=== PATIENT | male | born 1945 | race African-American/Black ===

== ENCOUNTER 2016-12-14 18:19 | Inpatient (IN) | payer OTHER, BC ==
[2016-12-14 18:24] VITALS: BMI 29.9
--- NOTE | 2016-12-14 18:31 | PDOC ---
History of Present Illness - General History Source: Patient, Spouse () Exam Limitations: No Limitations - History of Present Illness Initial Comments: 12/14/16 18:53 The patient is a 71 year old male, accompanied by , with no known significant past medical history who presents to the ED with complaints of progressively worsening generalized weakness and shortness of breath for several weeks. 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 Since retiring, states the patient is not as physically active and has an increase in weight gain. Patient states he has developed an intermittent non productive cough over the last several months. Patient also reports he developed shortness of breath several weeks ago. He states he recently traveled to [facility] 2 weeks ago and came back yesterday. Patient reports falling, while in [facility], 1 week ago on his chest but denies head injury or loss of consciousness. Since the fall, the patient states his shortness of breath is progressively worsening and he also reports generalized weakness. Upon arrival to the ED, patient was noted to have a fever of 103F. Patient is noncompliant with medical care and notes,this is his first visit to a doctor in his entire life. Denies chest pain or palpitations. Denies abdominal pain, nausea, vomiting, or diarrhea. Denies dysuria or changes in urinary output. Denies dizziness or lightheadedness. Denies any other symptoms. <Lidia Milian - Last Filed: 12/14/16 18:53> <Ana Palma - Last Filed: 12/14/16 20:16> - General Chief Complaint: Weakness Stated Complaint: WEAKNESS Time Seen by Provider: 12/14/16 18:31 Past History <Lidia Milian - Last Filed: 12/14/16 18:53> - Past Medical History Other medical history: denies - Psycho/Social/Smoking Cessation Hx Suicidal Ideation: No Smoking History: Never smoked <Ana Palma - Last Filed: 12/14/16 20:16> - Past Medical History Allergies/Adverse Reactions: Allergies Allergy/AdvReac Type Severity Reaction Status Date / Time No Known Allergies Allergy Verified 12/14/16 18:24 Home Medications: Ambulatory Orders NK [No Known Home Medication] 12/14/16 Review of Systems - Review of Systems Able to Perform ROS?: Yes Comments:: 12/14/16 18:54 GENERAL/CONSTITUTIONAL: + fever, generalized weakness. No fever or chills. HEAD, EYES, EARS, NOSE AND THROAT: No change in vision. No ear pain or discharge. No sore throat. CARDIOVASCULAR: No chest pain or shortness of breath. RESPIRATORY:+ cough, SOB. No wheezing, or hemoptysis. GASTROINTESTINAL: No nausea, vomiting, diarrhea or constipation. GENITOURINARY: No dysuria, frequency, or change in urination. MUSCULOSKELETAL: No joint or muscle swelling or pain. No neck or back pain. SKIN: No rash NEUROLOGIC: No headache, vertigo, loss of consciousness, or change in strength/ sensation. ENDOCRINE: No increased thirst. No abnormal weight change. HEMATOLOGIC/LYMPHATIC: No anemia, easy bleeding, or history of blood clots. ALLERGIC/IMMUNOLOGIC: No hives or skin allergy. All Other Systems: Reviewed and Negative <Lidia Milian - Last Filed: 12/14/16 18:53> *Physical Exam - Vital Signs Last Vital Signs Temp Pulse Resp BP Pulse Ox 103 F H 104 H 20 164/85 83 L 12/14/16 18:20 12/14/16 18:20 12/14/16 18:20 12/14/16 18:20 12/14/16 18:20 - Physical Exam Comments: 12/14/16 18:54 GENERAL: + mild distress. Awake, alert, and fully oriented, HEAD: No signs of trauma EYES: PERRLA, EOMI, sclera anicteric, conjunctiva clear ENT: Auricles normal inspection, hearing grossly normal, nares patent, oropharynx clear without exudates. Moist mucosa NECK: Normal ROM, supple, no lymphadenopathy, JVD, or masses LUNGS: + decreased air entry bilaterally, tachypneic, speaking in 2-3 word sentences. No wheezes, and no crackles HEART: Regular rate and rhythm, normal S1 and S2, no murmurs, rubs or gallops ABDOMEN: Soft, nontender, normoactive bowel sounds. No guarding, no rebound. No masses EXTREMITIES: Normal range of motion, no edema. No clubbing or cyanosis. No cords, erythema, or tenderness NEUROLOGICAL: Normal speech SKIN: Warm, Dry, normal turgor, no rashes or lesions noted. <Lidia Milian - Last Filed: 12/14/16 18:53> - Vital Signs Last Vital Signs Temp Pulse Resp BP Pulse Ox 103 F H 104 H 20 164/85 83 L 12/14/16 18:20 12/14/16 18:20 12/14/16 18:20 12/14/16 18:20 12/14/16 18:20 <Ana Palma - Last Filed: 12/14/16 20:16> ED Treatment Course - LABORATORY CBC & Chemistry Diagram: 12/14/16 18:47 12/14/16 18:47 <Lidia Milian - Last Filed: 12/14/16 18:53> - LABORATORY CBC & Chemistry Diagram: 12/14/16 18:47 12/14/16 18:47 <Ana Palma - Last Filed: 12/14/16 20:16> Medical Decision Making - Medical Decision Making 12/14/16 20:08 Pt presents to the ED complaining of shortness of breath. Patient is febrile and hypoxic in the ED, and extremely tachypneic. Concern for PNA, occult rib fx , less likely PE. Given fever and hypoxia, patient treated for PNA with levaquin. Will check CT non contrast to rule out occult rib fx. <Ana Palma - Last Filed: 12/14/16 20:16> *DC/Admit/Observation/Transfer - Attestations Scribe Attestion: 12/14/16 18:54 Documentation prepared by Lidia Milian, acting as medical administrator for Ana Palma MD <Lidia Milian - Last Filed: 12/14/16 18:53> - Discharge Dispostion Admit: Yes <Ana Palma - Last Filed: 12/14/16 20:16> Diagnosis at time of Disposition: Pneumonia Qualifiers: Pneumonia type: due to unspecified organism Laterality: bilateral Lung location : unspecified part of lung Qualified Code(s): J18.9 - Pneumonia, unspecified organism - Discharge Dispostion Condition at time of disposition: Fair
[2016-12-14 18:54] LABS: EOSINOPHIL 0.1 % (0-4.5); MCH 31.4 pg (25.7-33.7); MCHC 34.8 g/dl (32.0-35.9); MEAN CELL VOLUME 90.1 fl (80-96); MEAN PLT VOLUME 10.9 fl (7.5-11.1); NEUTROPHILS 79.3 % (42.8-82.8); PLATELET COUNT 223 K/MM3 (134-434); RDW 13.1 % (11.9-15.9); WHITE BLOOD COUNT 10.8 K/mm3 (4.0-10.0)
[2016-12-14] MEDS ORDERED: ACETAMINOPHEN 500 MG TABLET (FP) PO ONE (18:57)
[2016-12-14] MEDS ORDERED: ACETAMINOPHEN 325 MG TABLET (FP) ONE (18:57)
[2016-12-14 19:22] LABS: ALBUMIN 2.7 g/dl (3.4-5.0); ANION GAP 11 (8-16); BILIRUBIN,TOTAL 1.5 mg/dL (0.2-1.0); CALCIUM 8.4 mg/dL (8.5-10.1); CO2 27 mmol/L (21-32); CREATININE 1.4 mg/dL (0.7-1.3); GLUCOSE,RANDOM 156 mg/dL (74-106); SGPT/ALT 62 U/L (12-78); TOT PROT 6.7 g/dl (6.4-8.2)
[2016-12-14 19:23] LABS: ALK PHOS 71 U/L (45-117)
[2016-12-14 19:26] LABS: SGOT/AST 97 U/L (15-37)
[2016-12-14] MEDS ORDERED: LEVOFLOXACIN 750 MG IVPB 150 ML IVPB ONE ×2 (19:33→19:35)
[2016-12-14 20:47] LABS: URINE APPEARANCE SLCLOUDY; URINE BILIRUBIN NEGATIVE (NEGATIVE); URINE BLOOD 2+ (NEGATIVE); URINE COLOR AMBER; URINE GLUCOSE (UA) NEGATIVE (NEGATIVE); URINE KETONE TRACE (NEGATIVE); URINE LEUK ESTERASE NEGATIVE (NEGATIVE); URINE NITRITE NEGATIVE (NEGATIVE)
[2016-12-14 20:52] LABS: URINE PROTEIN 2+ (NEGATIVE)
[2016-12-14 20:54] LABS: URINE MUCUS RARE; URINE RBC 1 /hpf (0-3); URINE WBC 2 /hpf (3-5)
--- NOTE | 2016-12-14 22:48 | PN ---
Teaching Attending Note Name of Resident: Richard Mack ATTENDING PHYSICIAN STATEMENT I saw and evaluated the patient. Chart, data, and imaging reviewed. I reviewed the resident's note and discussed the case with the resident. I agree with the resident's findings and plan as documented with modifications in the note below. SUBJECTIVE: 71yo male from [facility] with chronic dry cough felt short or breath, weak, and had worsening of cough for the past week. Minimal sputum. Fever up to 103 in ER. Denied any chest pain. Traveled to [facility] about 2 weeks ago. No sick contacts reported. Denied TB contacts. 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 Never had PPD performed. Has not seen doctor in many years. OBJECTIVE: Last Vital Signs Temp Pulse Resp BP Pulse Ox 98.6 F 87 16 134/76 95 12/14/16 22:40 12/14/16 22:40 12/14/16 22:40 12/14/16 22:40 12/14/16 22:46 General- NAD, comfortable HEENT - NC, AT, dry oral mucosa Neck - supple CV -s1+s2+ RRR Lungs - b/l rhonchi appreciated Abdomen- soft, mild distention, nontender, no masses appreciated Ext - 2+ pitting edema b/l , no clubbing or cyanosis appreciated Abnormal Lab Results 12/14/16 12/14/16 12/14/16 18:47 18:47 20:28 WBC 10.8 H Sodium 133 L Chloride 95 L Creatinine 1.4 H Random Glucose 156 H Calcium 8.4 L Total Bilirubin 1.5 H AST 97 H B-Natriuretic Peptide Albumin 2.7 L Urine Protein 2+ H Urine Ketones Trace H Urine Blood 2+ H 12/14/16 20:37 WBC Sodium Chloride Creatinine Random Glucose Calcium Total Bilirubin AST B-Natriuretic Peptide 833.42 H Albumin Urine Protein Urine Ketones Urine Blood EKG -NSR , no ST -T changes CT scan of chest- b/l consolidations and ground glass changes ASSESSMENT AND PLAN: #Sepsis 2/2 to Multilobar community acquired PNA. Meets SIRS criteria. B/l consolidations and ground glass changes found on chest CT. Should r/o legionella , mycoplasma given ground glass changes. S/p levofloxacin stat in ER. Should r/ o TB given history of chronic cough. -troponin -lactate -blood cultures x2 -sputum culture -legionella urine ag -mycoplasma IgM -quantiferon gold -airoborne isolation -3 sputums for AFB culture and smear -ceftriaxone 2g IV q24hrs -azithromycin 500mg PO daily -ID consult for antibiotic approval -HIV serology #TERRY vs CKD - unknown baseline creatinine -urine lytes -urine creatinine -UA -renal sonogram -gentle IVF hydration -avoid nephrotoxic medications -I,Os -daily weights -transthoracic echo -A1c #DVT risk - low -SCDs for dvt ppx #Diet - low sodium diet
[2016-12-14] MEDS ORDERED: SODIUM CHLORIDE 1,000 ML IV SCH (23:00)
--- NOTE | 2016-12-14 23:38 | HP ---
CHIEF COMPLAINT: Generalized weakness, Fever, SOB, Couph PCP: NO PCP he will see his PCP HISTORY OF PRESENT ILLNESS: 71 Year old man from [facility] with history of chronic dry cough who presented to the ED with one week h/o generalized weakness, Fatigue , SOB on exertion,and loss of appetite. symptoms associated with fever, chills, diaphoresis and loss of appetite. he reports that the cough worsen in the last week, and become productive of less than a spoon of white phlegm, and associated with little blood sometimes. He denies any headache, blurry vision, light headedness, facial pain,palpitation,orthopnea , nocturnopnea, he denies abdominal pain, D/C/ N/V. He denies any urinary symptoms.patient mentioned one mechanical fall last week. he has no history of sick contact,but has been recently in [facility]. ER course was notable for: (1)KG -NSR , no ST -T changes (2)CT scan of chest- b/l consolidations and ground glass changes (3) Levofluxacin 750 IVPB once in the ED, Tylenol 1000 PO once. Recent Travel: yes , [facility] PAST MEDICAL HISTORY: None PAST SURGICAL HISTORY:None Social History: Smoking:never Alcohol:never Drugs: never Family History: BP on his mother side Allergies No Known Allergies Allergy (Verified 12/14/16 18:24) HOME MEDICATIONS: Home Medications Medication Instructions Recorded NK [No Known Home Medication] 12/14/16 REVIEW OF SYSTEMS CONSTITUTIONAL: Absent: fever, chills, diaphoresis, generalized weakness, malaise, loss of appetite, gaine weight since care home in March. HEENT: Absent: rhinorrhea, nasal congestion, throat pain, throat swelling, difficulty swallowing, mouth swelling, ear pain, eye pain, visual changes CARDIOVASCULAR: Absent: chest pain, syncope, palpitations, irregular heart rate, lightheadedness , peripheral edema RESPIRATORY: Absent: cough, shortness of breath, dyspnea with exertion, orthopnea, wheezing, stridor, hemoptysis GASTROINTESTINAL: Absent: abdominal pain, abdominal distension, nausea, vomiting, diarrhea, constipation, melena, hematochezia GENITOURINARY: Absent: dysuria, frequency, urgency, hesitancy, hematuria, flank pain, genital pain MUSCULOSKELETAL: Absent: myalgia, arthralgia, joint swelling, back pain, neck pain SKIN: Absent: rash, itching, pallor HEMATOLOGIC/IMMUNOLOGIC: Absent: easy bleeding, easy bruising, lymphadenopathy, frequent infections ENDOCRINE: Absent: unexplained weight gain, unexplained weight loss, heat intolerance, cold intolerance NEUROLOGIC: Absent: headache, focal weakness or paresthesias, dizziness, unsteady gait, seizure, mental status changes, bladder or bowel incontinence PSYCHIATRIC: Absent: anxiety, depression, suicidal or homicidal ideation, hallucinations. PHYSICAL EXAMINATION Vital Signs - 24 hr 12/14/16 12/14/16 12/14/16 20:55 22:40 22:46 Temperature 98.6 F Pulse Rate 87 Pulse Rate [ 91 H Radial] Respiratory 18 16 Rate Blood Pressure 134/76 Blood Pressure 125/70 [Right Arm] O2 Sat by Pulse 100 95 Oximetry (%) GENERAL: Awake, alert, and fully oriented, in no acute distress. HEAD: Normal with no signs of trauma. EYES: Pupils equal, round and reactive to light, extraocular movements intact, sclera anicteric, conjunctiva clear. No lid lag. EARS, NOSE, THROAT: Ears normal, nares patent, oropharynx clear without exudates. Moist mucous membranes. NECK: Normal range of motion, supple without lymphadenopathy, JVD, or masses. LUNGS: Breath sounds equal, diffuse crackles at the lower lung bases . No wheezes. No accessory muscle use. HEART: Regular rate and rhythm, normal S1 and S2 without murmur, rub or gallop. ABDOMEN: Soft, nontender, not distended, normoactive bowel sounds, no guarding, no rebound, no masses. No hepatomegaly or splenomegaly. MUSCULOSKELETAL: Normal range of motion at all joints. No bony deformities or tenderness. No CVA tenderness. UPPER EXTREMITIES: 2+ pulses, warm, well-perfused. No cyanosis. No clubbing. No peripheral edema. LOWER EXTREMITIES: 2+ pulses, warm, well-perfused. No calf tenderness. +2 peripheral edema. NEUROLOGICAL: Normal speech. Normal gait. PSYCHIATRIC: Cooperative. Good eye contact. Appropriate mood and affect. SKIN: Warm, dry, normal turgor, no rashes or lesions noted, normal capillary refill. Laboratory Results - last 24 hr 12/14/16 12/14/16 20:28 20:37 B-Natriuretic Peptide 833.42 H Urine Color Grace Urine Appearance Slcloudy Urine pH 5.0 Ur Specific [place] 1.020 Urine Protein 2+ H Urine Glucose (UA) Negative Urine Ketones Trace H Urine Blood 2+ H Urine Nitrite Negative Urine Bilirubin Negative Urine Urobilinogen 2.0 Ur Leukocyte Esterase Negative Urine RBC 1 Urine WBC 2 Urine Mucus Rare CBC,CMP WBC 10.8 K/mm3 (4.0-10.0) H 12/14/16 18:47 RBC 4.23 M/mm3 (4.00-5.60) 12/14/16 18:47 Hgb 13.3 GM/dL (11.7-16.9) 12/14/16 18:47 Hct 38.1 % (35.4-49) 12/14/16 18:47 MCV 90.1 fl (80-96) 12/14/16 18:47 MCH 31.4 pg (25.7-33.7) 12/14/16 18:47 MCHC 34.8 g/dl (32.0-35.9) 12/14/16 18:47 RDW 13.1 % (11.9-15.9) 12/14/16 18:47 Plt Count 223 K/MM3 (134-434) 12/14/16 18:47 MPV 10.9 fl (7.5-11.1) 12/14/16 18:47 Neutrophils % 79.3 % (42.8-82.8) 12/14/16 18:47 Lymphocytes % 10.5 % (8-40) 12/14/16 18:47 Monocytes % 9.1 % (3.8-10.2) 12/14/16 18:47 Eosinophils % 0.1 % (0-4.5) 12/14/16 18:47 Basophils % 1.0 % (0-2.0) 12/14/16 18:47 Sodium 133 mmol/L (136-145) L 12/14/16 18:47 Potassium 4.2 mmol/L (3.5-5.1) 12/14/16 18:47 Chloride 95 mmol/L (98-107) L 12/14/16 18:47 Carbon Dioxide 27 mmol/L (21-32) 12/14/16 18:47 Anion Gap 11 (8-16) 12/14/16 18:47 BUN 15 mg/dL (7-18) 12/14/16 18:47 Creatinine 1.4 mg/dL (0.7-1.3) H 12/14/16 18:47 Creat Clearance w eGFR 50.10 (>60) 12/14/16 18:47 Random Glucose 156 mg/dL (74-106) H 12/14/16 18:47 Lactic Acid 1.4 mmol/L (0.4-2.0) 12/14/16 18:47 Calcium 8.4 mg/dL (8.5-10.1) L 12/14/16 18:47 Total Bilirubin 1.5 mg/dL (0.2-1.0) H 12/14/16 18:47 AST 97 U/L (15-37) H 12/14/16 18:47 ALT 62 U/L (12-78) 12/14/16 18:47 Alkaline Phosphatase 71 U/L (45-117) 12/14/16 18:47 B-Natriuretic Peptide 833.42 pg/ml (5-125) H 12/14/16 20:37 Total Protein 6.7 g/dl (6.4-8.2) 12/14/16 18:47 Albumin 2.7 g/dl (3.4-5.0) L 12/14/16 18:47 Home Medication List Medication Instructions Recorded Confirmed Type NK [No Known Home Medication] 12/14/16 12/14/16 History Active Medications Generic Name Dose Route Start Last Admin Trade Name Freq PRN Reason Stop Dose Admin Acetaminophen 650 mg 12/15/16 00:46 Tylenol - PO 12/15/16 00:47 ONCE ONE Azithromycin 500 mg 12/15/16 10:00 Zithromax - PO DAILY MAXINE Current Medications Azithromycin (Zithromax -) 500 mg PO DAILY MAXINE Sodium Chloride (Normal Saline -) 250 mls @ 500 mls/hr IV ASDIR STA Stop: 12/15/16 01:18 ASSESSMENT/PLAN: 71 Year old man from [facility] with history of chronic dry cough who presented to the ED with one week h/o generalized weakness, Fatigue , SOB on exertion,and loss of appetite. symptoms associated with fever, chills, diaphoresis and loss of appetite.Patient was admitted to med-surg for treatment of possible pneumonia. # Sepsis likely 2/2 CAP Pneumonia VS TB vs MT * has fever , HR>90 , and suspected sourse of infection (lungs) * Troponin trend * EKG did not show any St, T wave changes * CXR shows left upper lob consolidation, CT scan shows B/L consolidation and ground glass changes * Duneb * 2 L O2 NC * Blood Culture X2 * Sputum culture * Urine Legionella antigen * Echo cardiogram to get his base line * Air born Isolation * 3 sputums for AFB culture and smear * mycoplasma IgM * quantiferon gold * ID consult * Azithromycine 500 mg PO daily ,ceftriaxone 2g IV q24hrs ( needs ID approval ) * LA * # TERRY likely 2/2 Hypovolemia vs dehydration vs hypoperfusion of cardiac origin * BUN/Cr 15/1.4, unknown base line * IV fuids 250 Bolus once * Urine lytes * Urine protein * Urine NA * Urine Cr * Avoid Nephrotoxic agents * Renal US * # Lower extremities Edema, Acute * Likely 2/2 TERRY vs Cardiac reasons * Elevated legs * Consider Diuresis after correct kidney function * I/O calculate , daily weight # Hyponatremia, mild , likely 2/2 Low intake vs TERRY * Na 133 * Repeat BMP * IV fluids * I/O calculate , daily weight # elevated BP * BP today 164/85 * Monitor BP * Low sodium diet * Patient education * # Elevated Blood Glucose * Random Glu 156 * trend Glu * HGA1c * Patient education , diabetic Diet * # FEN * F: 250 NS Bolus * E: Hyponatremia , 133 * N: low sodium diet * # Proph * DVT : low rish , early ambulation * GI: No need * airobic isolation Dispo : * Admit to med-surg * Isolation precautions Case was discussed with medical attending and medical team Richard Mack MD .PGY1 Visit type - Emergency Visit Emergency Visit: Yes ED Registration Date: 12/14/16 Care time: The patient presented to the Emergency Department on the above date and was hospitalized for further evaluation of their emergent condition. - New Patient This patient is new to me today: Yes Date on this admission: 12/18/16 - Critical Care Critical Care patient: No
[2016-12-15] MEDS ORDERED: SODIUM CHLORIDE 1,000 ML IV SCH (00:04)
[2016-12-15] MEDS ORDERED: ACETAMINOPHEN 325 MG TABLET (FP) PO ONE ×2 (00:46→06:30)
[2016-12-15] MEDS ORDERED: SODIUM CHLORIDE 250 ML IV STA (00:49)
[2016-12-15 01:05] LABS: URINE APPEARANCE CLEAR; URINE BILIRUBIN NEGATIVE (NEGATIVE); URINE BLOOD 2+ (NEGATIVE); URINE COLOR YELLOW; URINE GLUCOSE (UA) NEGATIVE (NEGATIVE); URINE KETONE NEGATIVE (NEGATIVE); URINE LEUK ESTERASE NEGATIVE (NEGATIVE); URINE NITRITE NEGATIVE (NEGATIVE); URINE UROBILINOGEN 4.0 E.U/dl mg/dL (0.2-1.0)
[2016-12-15 01:15] LABS: URINE PROTEIN 1+ (NEGATIVE)
[2016-12-15 01:16] LABS: URINE MUCUS RARE; URINE RBC <1 /hpf (0-3); URINE WBC 1 /hpf (3-5)
[2016-12-15] MEDS ORDERED: ACETAMINOPHEN 325 MG TABLET (FP) PO PRN (06:29)
[2016-12-15 08:46] LABS: MCH 30.6 pg (25.7-33.7); MCHC 33.7 g/dl (32.0-35.9); MEAN CELL VOLUME 90.8 fl (80-96); MEAN PLT VOLUME 10.5 fl (7.5-11.1); PLATELET COUNT 211 K/MM3 (134-434); RDW 13.2 % (11.9-15.9); WHITE BLOOD COUNT 8.3 K/mm3 (4.0-10.0)
[2016-12-15 09:07] LABS: ANION GAP 9 (8-16); CALCIUM 8.1 mg/dL (8.5-10.1); CO2 29 mmol/L (21-32); GLUCOSE,RANDOM 126 mg/dL (74-106)
[2016-12-15 09:14] LABS: CREATININE 1.2 mg/dL (0.7-1.3); TROPONIN I 0.02 ng/ml (0.00-0.05)
--- NOTE | 2016-12-15 09:25 | PN ---
Progress Note, Physician Chief Complaint: ID This 71 y/o old [place] gentleman asked to see for PNA. 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 Three weeks ago left for vacation 3 weeks in [facility]. Upon return fever and chill couphing. Says since his jail has experienced exertional dsypnea with productive couph and peripheral edema. Did not seek medical attention. Notes gaining weight though last few day BALJINDER with onset of fever chills and pulmonary infiltrate. HIV status unknown. Empiric Levofloxacin. TB status unknown No pets hobboes exposures to ill persons. - Current Medication List Current Medications: Active Medications Acetaminophen (Tylenol -) 650 mg PO Q6H PRN PRN Reason: FEVER OR PAIN Azithromycin (Zithromax -) 500 mg PO DAILY MAXINE - Objective Vital Signs: Vital Signs Temperature 101.0 F H 12/15/16 06:00 Pulse Rate 96 H 12/15/16 06:00 Respiratory Rate 18 12/15/16 06:00 Blood Pressure 143/74 12/15/16 06:00 O2 Sat by Pulse Oximetry (%) 95 12/14/16 22:46 Constitutional: Yes: Well Nourished, No Distress HENT: No: Thrush Neck: Yes: WNL, Supple Cardiovascular: Yes: Regular Rate and Rhythm, S1, S2 Respiratory: Yes: WNL, Regular, CTA Bilaterally Gastrointestinal: Yes: WNL, Normal Bowel Sounds, Soft, Tenderness, Tenderness, Epigastrium Edema: No Labs: CBC, BMP 12/15/16 07:15 12/15/16 07:15 Assessment/Plan Microbiology Laboratory Tests 12/14/16 12/14/16 12/14/16 18:47 18:47 18:47 WBC 10.8 H Hgb 13.3 Hct 38.1 Plt Count 223 Neutrophils % 79.3 Lymphocytes % 10.5 Monocytes % 9.1 Eosinophils % 0.1 Basophils % 1.0 BUN 15 Creatinine 1.4 H Creat Clearance w eGFR 50.10 Random Glucose 156 H Lactic Acid 1.4 Calcium 8.4 L Total Bilirubin 1.5 H AST 97 H ALT 62 Alkaline Phosphatase 71 Total Protein 6.7 Albumin 2.7 L Urine RBC Urine WBC 12/14/16 20:28 WBC Hgb Hct Plt Count Neutrophils % Lymphocytes % Monocytes % Eosinophils % Basophils % BUN Creatinine Creat Clearance w eGFR Random Glucose Lactic Acid Calcium Total Bilirubin AST ALT Alkaline Phosphatase Total Protein Albumin Urine RBC 1 Urine WBC 2 Assessment Pneumonia LLL with bilateral interstitial changes ? CHF vs infectious etiology Differential diagnosis includes CAP but must consider HIV infection and TB though latter seems less likely. Plan Ceftriaxone and Azithromcyin Avoid quinolones as would partially treat TB Sputum AFB PCR x 2 Isolation fine as precaution LDH CRP ESR Quant gold ECHO May need bronchoscopy if no improvement Thanks Yandel CEE
[2016-12-15] MEDS ORDERED: DEXTROSE 5%-WATER 100 ML IVPB ONE (10:47)
[2016-12-15] MEDS: CEFTRIAXONE 2 GM in DEXTROSE 5%-WATER 100 ML IVPB SCH (10:59)
[2016-12-15] MEDS: AZITHROMYCIN 250 MG TABLET PO SCH (11:05)
--- NOTE | 2016-12-15 11:21 | CON.PULM ---
Consult Consult Specialty:: PULMONARY Referred by:: Dr. Bronson Reason for Consultation:: pneumonia - History of Present Illness Chief Complaint: shortness of breath History of Present Illness: 71yo male without significant past medical history who was admitted with worsening shortness of breath, fevers x 1 week. Reports a cough productive of green sputum with bloody streaks. No chest pain or palpitations. Occasional chills and sweats. No unintentional weight loss. He did return from [facility] about 3 weeks ago, no sick contacts. 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 He is a never smoker. - History Source History Provided By: Patient, Medical Record Limitations to Obtaining History: No Limitations - Alcohol/Substance Use Hx Alcohol Use: No - Smoking History Smoking history: Never smoked Home Medications - Allergies Allergies/Adverse Reactions: Allergies Allergy/AdvReac Type Severity Reaction Status Date / Time No Known Allergies Allergy Verified 12/14/16 18:24 - Home Medications Home Medications: Ambulatory Orders NK [No Known Home Medication] 12/14/16 Review of Systems - Review of Systems Constitutional: reports: Fever, Malaise, Weakness. denies: Chills Eyes: denies: Recent Change in Vision HENT: denies: Nasal Congestion, Throat Pain Neck: denies: Stiffness, Tenderness Cardiovascular: reports: Shortness of Breath. denies: Chest Pain, Edema, Palpitations Respiratory: reports: Cough, Hemoptysis, SOB on Exertion. denies: Wheezing Gastrointestinal: denies: Abdominal Pain, Nausea, Vomiting Genitourinary: denies: Dysuria, Hematuria Neurological: denies: Dizziness, Headache Endocrine: denies: Unexplained Weight Loss Physical Exam Vital Sings: Vital Signs Temperature 101.0 F H 12/15/16 06:00 Pulse Rate 86 12/15/16 10:00 Respiratory Rate 20 12/15/16 10:00 Blood Pressure 150/80 12/15/16 10:00 O2 Sat by Pulse Oximetry (%) 95 12/15/16 09:00 Constitutional: Yes: Calm Eyes: Yes: Conjunctiva Clear, EOM Intact HENT: Yes: Atraumatic, Normocephalic Neck: Yes: Supple, Trachea Midline Cardiovascular: Yes: Regular Rate and Rhythm Respiratory: Yes: Diminished (decreased breath sounds at the bases) ...Clubbing: No Gastrointestinal: Yes: Normal Bowel Sounds, Soft. No: Tenderness Edema: No Neurological: Yes: Alert, Oriented Labs: CBC, BMP 12/15/16 07:15 12/15/16 07:15 Imaging - Results Chest X-ray: Report Reviewed, Image Reviewed Cat Scan: Report Reviewed, Image Reviewed (multilobar infiltrates greatest in MACO) Problem List - Problems (1) Pneumonia Code(s): J18.9 - PNEUMONIA, UNSPECIFIED ORGANISM Qualifiers: Pneumonia type: due to unspecified organism Laterality: bilateral Lung location: unspecified part of lung Qualified Code(s): J18.9 - Pneumonia , unspecified organism Assessment/Plan Multilobar Pneumonia likely Community Acquired - agree with antibiotics - send sputum for AFB, serum quantiferon although less likely TB given acuity of symptoms - f/u official CT chest reading - sputum is productive but am available for bronchoscopy if further samples needed - will need outpt f/u of chest imaging to ensure resolution of infiltrates - DVT prophylaxis Thank you for this consult Ernie Gallo MD
[2016-12-15 11:28] LABS: HIV 1 & 2 AB NEGATIVE; HIV 1 AGp24 NEGATIVE
--- NOTE | 2016-12-15 12:40 | PN ---
Physical Exam: SUBJECTIVE: Patient seen and examined. He says he feels less SOB. He is coughing up bloody sputum. OBJECTIVE: Vital Signs Period Temp Pulse Resp BP Sys/Stack Pulse Ox Last 24 Hr 98.6 F-101.3 F 86-96 16-20 125-150/67-80 95-100 GENERAL: The patient is awake, alert, and fully oriented, in no acute distress. LUNGS: Breath sounds diminished throughout, no wheezes, no crackles, no accessory muscle use. HEART: Regular rate and rhythm, S1, S2 without murmur, rub or gallop. ABDOMEN: Obese, soft, nontender, nondistended, normoactive bowel sounds, no guarding, no rebound, no hepatosplenomegaly, no masses. EXTREMITIES: 2+ pulses, warm, well-perfused, no edema. Laboratory Results - last 24 hr 12/14/16 12/14/16 12/15/16 20:28 20:37 00:05 WBC RBC Hgb Hct MCV MCH MCHC RDW Plt Count MPV Sodium Potassium Chloride Carbon Dioxide Anion Gap BUN Creatinine Random Glucose Calcium Troponin I C-Reactive Protein B-Natriuretic Peptide 833.42 H Urine Color Grace Urine Appearance Slcloudy Urine pH 5.0 Ur Specific [place] 1.020 Urine Protein 2+ H Urine Glucose (UA) Negative Urine Ketones Trace H Urine Blood 2+ H Urine Nitrite Negative Urine Bilirubin Negative Urine Urobilinogen 2.0 Ur Leukocyte Esterase Negative Urine RBC 1 Urine WBC 2 Urine Mucus Rare Ur Random Sodium 28 Ur Random Potassium 17.1 Ur Random Chloride 34 Urine Creatinine HIV 1&2 Antibody Screen HIV P24 Antigen 12/15/16 12/15/16 12/15/16 00:05 00:05 00:05 WBC RBC Hgb Hct MCV MCH MCHC RDW Plt Count MPV Sodium Potassium Chloride Carbon Dioxide Anion Gap BUN Creatinine Random Glucose Calcium Troponin I C-Reactive Protein B-Natriuretic Peptide Urine Color Yellow Urine Appearance Clear Urine pH 5.0 Ur Specific [place] 1.015 Urine Protein 76 1+ H Urine Glucose (UA) Negative Urine Ketones Negative Urine Blood 2+ H Urine Nitrite Negative Urine Bilirubin Negative Urine Urobilinogen 4.0 e.u/dl Ur Leukocyte Esterase Negative Urine RBC <1 Urine WBC 1 Urine Mucus Rare Ur Random Sodium Ur Random Potassium Ur Random Chloride Urine Creatinine 114.0 HIV 1&2 Antibody Screen HIV P24 Antigen 12/15/16 12/15/16 12/15/16 07:15 07:15 07:15 WBC 8.3 RBC 4.05 Hgb 12.4 Hct 36.8 MCV 90.8 MCH 30.6 MCHC 33.7 RDW 13.2 Plt Count 211 MPV 10.5 Sodium 136 Potassium 3.8 Chloride 98 Carbon Dioxide 29 Anion Gap 9 BUN 14 Creatinine 1.2 Random Glucose 126 H Calcium 8.1 L Troponin I 0.02 Cancelled C-Reactive Protein B-Natriuretic Peptide Urine Color Urine Appearance Urine pH Ur Specific [place] Urine Protein Urine Glucose (UA) Urine Ketones Urine Blood Urine Nitrite Urine Bilirubin Urine Urobilinogen Ur Leukocyte Esterase Urine RBC Urine WBC Urine Mucus Ur Random Sodium Ur Random Potassium Ur Random Chloride Urine Creatinine HIV 1&2 Antibody Screen HIV P24 Antigen 12/15/16 12/15/16 10:00 10:00 WBC RBC Hgb Hct MCV MCH MCHC RDW Plt Count MPV Sodium Potassium Chloride Carbon Dioxide Anion Gap BUN Creatinine Random Glucose Calcium Troponin I C-Reactive Protein 22.8 H B-Natriuretic Peptide Urine Color Urine Appearance Urine pH Ur Specific [place] Urine Protein Urine Glucose (UA) Urine Ketones Urine Blood Urine Nitrite Urine Bilirubin Urine Urobilinogen Ur Leukocyte Esterase Urine RBC Urine WBC Urine Mucus Ur Random Sodium Ur Random Potassium Ur Random Chloride Urine Creatinine HIV 1&2 Antibody Screen Negative HIV P24 Antigen Negative Active Medications Generic Name Dose Route Start Last Admin Trade Name Freq PRN Reason Stop Dose Admin Acetaminophen 650 mg 12/15/16 06:29 Tylenol - PO Q6H PRN FEVER OR PAIN Azithromycin 500 mg 12/15/16 10:00 12/15/16 11:05 Zithromax - PO 500 mg DAILY MAXINE Administration Ceftriaxone Sodium 2 gm/ 100 mls @ 200 mls/hr 12/15/16 10:00 12/15/16 10:59 Dextrose IVPB 200 mls/hr DAILY MAXINE Administration ASSESSMENT/PLAN: This is a 71 year old man with no significant history who presented to the ER with fever, generalized weakness, fatigue, SOB on exertion, loss of appetite x 1 week. 1. Sepsis secondary to multilobar pneumonia - Temp 101.0 this morning - Continue Rocephin, Zithromax - Blood, sputum cultures pending - Urine Legionella, Pneumococcus Ag pending - TB quantiferon gold pending - Sputum AFB ordered - HIV 1/2 Ab, P24 Ag negative - C-RP is 22.8 - ID and Pulmonary consults appreciated 2. Acute hypoxic respiratory failure - Oxygen to maintain saturation > 90% 3. Possible acute kidney injury secondary to sepsis - Creatinine improving (baseline not known) - Monitor creatinine 4. Hyponatremia, mild - Improved 5. Hyperglycemia - Fingertsticks with Novolog sliding scale - Check HgbA1c Visit type - Emergency Visit Emergency Visit: Yes ED Registration Date: 12/14/16 Care time: The patient presented to the Emergency Department on the above date and was hospitalized for further evaluation of their emergent condition. - New Patient This patient is new to me today: Yes Date on this admission: 12/15/16 - Critical Care Critical Care patient: No
--- NOTE | 2016-12-15 13:26 | EKG ---
Test Reason : Blood Pressure : / mmHG Vent. Rate : 078 BPM Atrial Rate : 078 BPM P-R Int : 152 ms QRS Dur : 102 ms QT Int : 392 ms P-R-T Axes : 046 -31 009 degrees QTc Int : 446 ms NORMAL SINUS RHYTHM POSSIBLE LEFT ATRIAL ENLARGEMENT LEFT AXIS DEVIATION LEFT VENTRICULAR HYPERTROPHY EARLY REPOLARIZATION ABNORMAL ECG NO PREVIOUS ECGS AVAILABLE REPEAT EKG IF CLINICALLY INDICATED Confirmed by SOCORRO ELIZONDO MD ([id number] on 12/15/2016 1:26:12 PM Referred By: Confirmed By:SOCORRO ELIZONDO MD
[2016-12-16 07:51] LABS: BASOPHIL 0.7 % (0-2.0); EOSINOPHIL 1.7 % (0-4.5); MCH 30.6 pg (25.7-33.7); MCHC 33.5 g/dl (32.0-35.9); MEAN CELL VOLUME 91.4 fl (80-96); MEAN PLT VOLUME 10.1 fl (7.5-11.1); NEUTROPHILS 77.9 % (42.8-82.8); PLATELET COUNT 214 K/MM3 (134-434); RDW 13.3 % (11.9-15.9); WHITE BLOOD COUNT 8.4 K/mm3 (4.0-10.0)
[2016-12-16 08:30] LABS: ANION GAP 10 (8-16); CALCIUM 8.3 mg/dL (8.5-10.1); CO2 31 mmol/L (21-32); GLUCOSE,RANDOM 121 mg/dL (74-106); LDH 412 U/L (87-241)
--- NOTE | 2016-12-16 09:17 | PN ---
Progress Note, Physician Chief Complaint: ID Clinical improvement Fever down - Current Medication List Current Medications: Active Medications Acetaminophen (Tylenol -) 650 mg PO Q6H PRN PRN Reason: FEVER OR PAIN Last Admin: 12/15/16 23:42 Dose: 650 mg Azithromycin (Zithromax -) 500 mg PO DAILY [facility] Last Admin: 12/15/16 11:05 Dose: 500 mg Ceftriaxone Sodium 2 gm/ (Dextrose) 100 mls @ 200 mls/hr IVPB DAILY [facility] Last Admin: 12/15/16 10:59 Dose: 200 mls/hr - Objective Vital Signs: Vital Signs Temperature 98.6 F 12/16/16 06:00 Pulse Rate 80 12/16/16 06:00 Respiratory Rate 18 12/16/16 06:00 Blood Pressure 141/81 12/16/16 06:00 O2 Sat by Pulse Oximetry (%) 96 12/15/16 20:44 Constitutional: Yes: Well Nourished, No Distress HENT: Yes: WNL, Atraumatic Neck: Yes: WNL, Supple Cardiovascular: Yes: Regular Rate and Rhythm, S1, S2. No: Murmur Respiratory: Yes: WNL, Regular, CTA Bilaterally. No: Rhonchi, Wheezes Gastrointestinal: Yes: Soft Edema: No Labs: CBC, BMP 12/16/16 06:00 12/16/16 06:00 Assessment/Plan Laboratory Tests 12/15/16 12/16/16 12/16/16 10:00 06:00 06:00 WBC 8.4 Hgb 12.1 Hct 36.0 Plt Count 214 BUN 12 Creatinine 1.0 LD Total 412 H HIV 1&2 Antibody Screen Negative HIV P24 Antigen Negative Assessment Pneumonia Clinical improvement Fevers down TB less likely Plan Continue IV antibiotics Steroids ? Complete sputum collection ECHO pending
--- NOTE | 2016-12-16 09:32 | PN ---
Progress Note (short form) - Note Progress Note: PULMONARY AFEBRILE TODAY SUBJECTIVE IMPROVEMENT ANICTERIC DISTANT BUT CLEAR S1S2 BS+ NO EDEMA 25 POUND WEIGHT GAIN SINCE RETIRING FROM POST OFFICE 9 MONTHS AGO LABS/MEDS/MICRO/IMAGING REVIEWED Multilobar Pneumonia - agree with antibiotics/ may consider steroids - send sputum for AFB, serum quantiferon although less likely TB given acuity of symptoms - sputum is productive bronchoscopy if further samples needed - will need outpt f/u of chest imaging to ensure resolution of infiltrates - DVT prophylaxis - check echo Navi LEIWS MD
[2016-12-16] MEDS ORDERED: ALBUTEROL SO4 0.083% IH SOL 2.5 MG/3 ML VIAL.NEB. NEB PRN (09:54)
[2016-12-16] MEDS ORDERED: DEXTROSE 5%-WATER 100 ML IVPB ONE (10:13)
[2016-12-16] MEDS ORDERED: PT OWN MED DRAWER 7, Y5N ONE (10:21)
[2016-12-16] MEDS: CEFTRIAXONE 2 GM in DEXTROSE 5%-WATER 100 ML IVPB SCH (10:27)
--- NOTE | 2016-12-16 10:36 | PN ---
Physical Exam: SUBJECTIVE: Patient seen and examined. Cough is improving. Had temp 100.8 last night. OBJECTIVE: Vital Signs Period Temp Pulse Resp BP Sys/Stack Pulse Ox Last 24 Hr 98.6 F-100.8 F 78-88 18-20 141-145/71-87 96 GENERAL: The patient is awake, alert, and fully oriented, in no acute distress. LUNGS: Bilateral wheezes. HEART: Regular rate and rhythm, S1, S2 without murmur, rub or gallop. ABDOMEN: Obese, soft, nontender, nondistended, normoactive bowel sounds, no guarding, no rebound, no hepatosplenomegaly, no masses. EXTREMITIES: 2+ pulses, warm, well-perfused, no edema. Laboratory Results - last 24 hr 12/15/16 12/15/16 12/15/16 00:05 10:00 10:00 WBC RBC Hgb Hct MCV MCH MCHC RDW Plt Count MPV Neutrophils % Lymphocytes % Monocytes % Eosinophils % Basophils % Sodium Potassium Chloride Carbon Dioxide Anion Gap BUN Creatinine Random Glucose Hemoglobin A1c % Calcium LD Total C-Reactive Protein 22.8 H Urine Color Yellow Urine Appearance Clear Urine pH 5.0 Ur Specific [place] 1.015 Urine Protein 1+ H Urine Glucose (UA) Negative Urine Ketones Negative Urine Blood 2+ H Urine Nitrite Negative Urine Bilirubin Negative Urine Urobilinogen 4.0 e.u/dl Ur Leukocyte Esterase Negative Urine RBC <1 Urine WBC 1 Urine Mucus Rare HIV 1&2 Antibody Screen Negative HIV P24 Antigen Negative 12/16/16 12/16/16 12/16/16 06:00 06:00 06:00 WBC 8.4 RBC 3.94 L Hgb 12.1 Hct 36.0 MCV 91.4 MCH 30.6 MCHC 33.5 RDW 13.3 Plt Count 214 MPV 10.1 Neutrophils % 77.9 Lymphocytes % 9.7 Monocytes % 10.0 Eosinophils % 1.7 D Basophils % 0.7 Sodium 139 Potassium 3.7 Chloride 98 Carbon Dioxide 31 Anion Gap 10 BUN 12 Creatinine 1.0 Random Glucose 121 H Hemoglobin A1c % 5.8 Calcium 8.3 L LD Total 412 H C-Reactive Protein Urine Color Urine Appearance Urine pH Ur Specific [place] Urine Protein Urine Glucose (UA) Urine Ketones Urine Blood Urine Nitrite Urine Bilirubin Urine Urobilinogen Ur Leukocyte Esterase Urine RBC Urine WBC Urine Mucus HIV 1&2 Antibody Screen HIV P24 Antigen Active Medications Generic Name Dose Route Start Last Admin Trade Name Shaun PRN Reason Stop Dose Admin Acetaminophen 650 mg 12/15/16 06:29 12/15/16 23:42 Tylenol - PO 650 mg Q6H PRN Administration FEVER OR PAIN Albuterol Sulfate 1 amp 12/16/16 09:54 Ventolin 0.083% Nebulizer Soln - NEB Q4H PRN SHORT OF BREATH/WHEEZING Azithromycin 500 mg 12/15/16 10:00 12/15/16 11:05 Zithromax - PO 500 mg DAILY MAXINE Administration Ceftriaxone Sodium 2 gm/ 100 mls @ 200 mls/hr 12/15/16 10:00 12/16/16 10:27 Dextrose IVPB 200 mls/hr DAILY MAXINE Administration ASSESSMENT/PLAN: This is a 71 year old man with no significant history who presented to the ER with fever, generalized weakness, fatigue, SOB on exertion, loss of appetite x 1 week. 1. Sepsis secondary to multilobar pneumonia - Temp improving, HR improved - Continue Rocephin, Zithromax - Start Albuterol nebs as needed - Blood cultures negative after 24 hours - Sputum culture growing normal chapis - Urine Legionella, Pneumococcus Ag negative - TB quantiferon gold pending - Sputum AFB pending - HIV 1/2 Ab, P24 Ag negative - C-RP is 22.8 2. Acute hypoxic respiratory failure - Oxygen to maintain saturation > 90% 3. Acute kidney injury secondary to sepsis - Improved - Renal US normal 4. Hyponatremia, mild - Improved 5. Hyperglycemia - HgbA1c 5.8 Visit type - Emergency Visit Emergency Visit: Yes ED Registration Date: 12/14/16 Care time: The patient presented to the Emergency Department on the above date and was hospitalized for further evaluation of their emergent condition. - New Patient This patient is new to me today: No - Critical Care Critical Care patient: No - Discharge Referral Referred to [facility] Med [facility] No
[2016-12-16] MEDS: AZITHROMYCIN 250 MG TABLET PO SCH (12:30)
[2016-12-17] MEDS ORDERED: DEXTROSE 5%-WATER 100 ML IVPB ONE (09:33)
[2016-12-17] MEDS: AZITHROMYCIN 250 MG TABLET PO SCH (09:42)
[2016-12-17] MEDS: CEFTRIAXONE 2 GM in DEXTROSE 5%-WATER 100 ML IVPB SCH (09:43)
--- NOTE | 2016-12-17 11:33 | PN ---
Progress Note (short form) - Note Progress Note: PULMONARY Feels better overall. Still with cough productive of clear sputum with bloody streaks. Fever curve down. Sputums with rare AFB. Last Vital Signs Temp Pulse Resp BP Pulse Ox 98.1 F 91 H 18 131/67 95 12/17/16 07:43 12/17/16 10:47 12/17/16 08:00 12/17/16 07:43 12/17/16 10:47 Gen: NAD at rest Heart: RRR Lung: decreased breath sounds at the bases Abd: soft, nontender Ext: no edema CBC, BMP 12/16/16 06:00 12/16/16 06:00 Active Medications Acetaminophen (Tylenol -) 650 mg PO Q6H PRN PRN Reason: FEVER OR PAIN Last Admin: 12/15/16 23:42 Dose: 650 mg Albuterol Sulfate (Ventolin 0.083% Nebulizer Soln -) 1 amp NEB Q4H PRN PRN Reason: SHORT OF BREATH/WHEEZING Azithromycin (Zithromax -) 500 mg PO DAILY [facility] Last Admin: 12/17/16 09:42 Dose: 500 mg Ceftriaxone Sodium 2 gm/ (Dextrose) 100 mls @ 200 mls/hr IVPB DAILY [facility] Last Admin: 12/17/16 09:43 Dose: 200 mls/hr A/P Multilobar Pneumonia +Sputum AFB - continue antibiotics - f/u serum quantiferon - TB PCR - repeat CXR in AM - bronchoscopy if further samples needed - will need outpt f/u of chest imaging to ensure resolution of infiltrates - DVT prophylaxis Problem List - Problems (1) Pneumonia Code(s): J18.9 - PNEUMONIA, UNSPECIFIED ORGANISM Qualifiers: Pneumonia type: due to unspecified organism Laterality: bilateral Lung location: unspecified part of lung Qualified Code(s): J18.9 - Pneumonia , unspecified organism
--- NOTE | 2016-12-17 14:19 | PN ---
Physical Exam: SUBJECTIVE: Patient seen and examined at bed side. He is doing very well. He denies any cough, SOB, chest pain , fever, chills, N/V/D/C. Edema in his legs has been resolved. OBJECTIVE: Vital Signs Period Temp Pulse Resp BP Sys/Stack Pulse Ox Last 24 Hr 98.1 F-99.4 F 83-100 18-24 131-156/67-96 92-96 GENERAL: The patient is awake, alert, and fully oriented, in no acute distress. HEAD: Normal with no signs of trauma. EYES: PERRL, sclera anicteric, conjunctiva clear. No ptosis. ENT: Ears normal, nares patent, moist mucous membranes. NECK: Trachea midline, full range of motion, supple. LUNGS: Breath sounds equal, clear to auscultation bilaterally, no wheezes, crackles on Left upper lob , no accessory muscle use. HEART: Regular rate and rhythm, S1, S2 without murmur, rub or gallop. ABDOMEN: Soft, nontender, nondistended, normoactive bowel sounds, no guarding, no rebound, no hepatosplenomegaly, no masses. EXTREMITIES: 2+ pulses, warm, well-perfused, no edema. NEUROLOGICAL: Normal speech, gait not observed. PSYCH: Normal mood, normal affect. SKIN: Warm, dry, normal turgor, no rashes or lesions noted Laboratory Results - last 24 hr 12/15/16 07:15 IgM 39 Active Medications Generic Name Dose Route Start Last Admin Trade Name Freq PRN Reason Stop Dose Admin Acetaminophen 650 mg 12/15/16 06:29 12/15/16 23:42 Tylenol - PO 650 mg Q6H PRN Administration FEVER OR PAIN Albuterol Sulfate 1 amp 12/16/16 09:54 Ventolin 0.083% Nebulizer Soln - NEB Q4H PRN SHORT OF BREATH/WHEEZING Azithromycin 500 mg 12/15/16 10:00 12/17/16 09:42 Zithromax - PO 500 mg DAILY MAXINE Administration Ceftriaxone Sodium 2 gm/ 100 mls @ 200 mls/hr 12/15/16 10:00 12/17/16 09:43 Dextrose IVPB 200 mls/hr DAILY MAXINE Administration ASSESSMENT/PLAN: 71 Year old man from [facility] with history of chronic dry cough who presented to the ED with one week h/o generalized weakness, Fatigue , SOB on exertion,and loss of appetite. symptoms associated with fever, chills, diaphoresis and loss of appetite.Patient was admitted to med-surg for treatment of possible pneumonia. # Sepsis likely 2/2 CAP Pneumonia VS TB vs ME, improved * has fever , HR>90 , and suspected sourse of infection (lungs) * Troponin trend was negative * EKG did not show any St, T wave changes * CXR shows left upper lob consolidation, CT scan shows B/L consolidation and ground glass changes * Start Albuterol nebs as needed * 2 L O2 NC * Blood Culture negative X2 after 24 hours * Sputum culture normal chapis * Urine Legionella antigen negative * Echo cardiogram to get his base line * Air born Isolation * 3 sputums for AFB culture and smear * mycoplasma IgM positive * TB quantiferon gold was negative * ID consult was consulted and continue Abx * Azithromycine 500 mg PO daily ,ceftriaxone 2g IV q24hrs ( approved by ID ) * LA 1.4 * HIV 1/2 Ab, P24 Ag negative * C-RP is 22.8 * will need outpt f/u of chest imaging to ensure resolution of infiltrates * * # TERRY likely 2/2 Hypovolemia vs dehydration vs hypoperfusion due to sepsis * BUN/Cr 15/1.4, unknown base line , improved * IV fuids 250 Bolus once * Urine lytes * Urine protein * Urine NA * Urine Cr * Avoid Nephrotoxic agents * Renal US: Normal # Acute hypoxic respiratory failure * O2 to maintain O2 sat >90 % # Pulmonary nodule : * Asymptomatic , malignant vs TB * will f/u as out patient for further investigation * will need outpt f/u of chest imaging to ensure resolution of infiltrates * # Lower extremities Edema, Acute, resolved * Likely 2/2 TERRY due sepsis * Elevated legs * Consider Diuresis after correct kidney function * I/O calculate , daily weight # Hyponatremia, mild , likely 2/2 Low intake vs TERRY , resolved * Na 133 * Repeat BMP * IV fluids * I/O calculate , daily weight # elevated BP * BP today 155/96 * Monitor BP * Low sodium diet * Patient education * # Hyperglycemia (pre-diabetic ) * Random Glu 121 * trend Glu * HGA1c 5.8 * Patient education , diabetic Diet, life style modification today 139 resolved * # FEN * F: 250 NS Bolus * E: Hyponatremia , 133 * N: low sodium diet * # Proph * DVT : low rish , early ambulation * GI: No need * airobic isolation Dispo : * Admit to med-surg * Isolation precautions Case was discussed with medical attending and medical team Richard Mack MD .PGY1 Visit type - Emergency Visit Emergency Visit: Yes ED Registration Date: 12/14/16 Care time: The patient presented to the Emergency Department on the above date and was hospitalized for further evaluation of their emergent condition. - New Patient This patient is new to me today: No - Critical Care Critical Care patient: No
--- NOTE | 2016-12-17 16:20 | PN ---
Progress Note, Physician History of Present Illness: Patient seen and examined at bedside. Patient states that he feels much better than yesterday. Denies shortness of breath, cough, chest pain, nausea, vomiting , fevers, chills, abdominal pain, diarrhea. - Current Medication List Current Medications: Active Medications Acetaminophen (Tylenol -) 650 mg PO Q6H PRN PRN Reason: FEVER OR PAIN Last Admin: 12/15/16 23:42 Dose: 650 mg Albuterol Sulfate (Ventolin 0.083% Nebulizer Soln -) 1 amp NEB Q4H PRN PRN Reason: SHORT OF BREATH/WHEEZING Azithromycin (Zithromax -) 500 mg PO DAILY [facility] Last Admin: 12/17/16 09:42 Dose: 500 mg Ceftriaxone Sodium 2 gm/ (Dextrose) 100 mls @ 200 mls/hr IVPB DAILY [facility] Last Admin: 12/17/16 09:43 Dose: 200 mls/hr - Objective Vital Signs: Vital Signs Temperature 98.0 F 12/17/16 14:00 Pulse Rate 98 H 12/17/16 14:00 Respiratory Rate 18 12/17/16 14:00 Blood Pressure 155/70 12/17/16 14:00 O2 Sat by Pulse Oximetry (%) 95 12/17/16 10:47 Constitutional: Yes: Well Nourished, No Distress, Calm Eyes: Yes: Conjunctiva Clear, EOM Intact HENT: Yes: Atraumatic, Normocephalic Neck: Yes: Supple, Trachea Midline Cardiovascular: Yes: Regular Rate and Rhythm, S1, S2. No: Bruit, JVD, Gallop, Murmur, Rub Respiratory: Yes: Regular, CTA Bilaterally. No: Rales, Rhonchi, SOB, SOB on Exertion, Tachypnea, Wheezes Gastrointestinal: Yes: Normal Bowel Sounds, Soft Musculoskeletal: Yes: WNL Extremities: Yes: WNL Edema: No Peripheral Pulses WNL: Yes Integumentary: Yes: WNL Neurological: Yes: Alert, Oriented, Cran Nerves II-XII Intact ...Motor Strength: WNL Psychiatric: Yes: Alert, Oriented Labs: CBC, BMP 12/16/16 06:00 12/16/16 06:00 - ....Imaging Chest X-ray: Report Reviewed Ultrasound: Report Reviewed Problem List - Problems (1) Pneumonia Code(s): J18.9 - PNEUMONIA, UNSPECIFIED ORGANISM Qualifiers: Pneumonia type: due to unspecified organism Laterality: bilateral Lung location: unspecified part of lung Qualified Code(s): J18.9 - Pneumonia, unspecified organism Assessment/Plan 71 year old male with multilobar pneumonia and rare (+) AFB sputum stain, unlikely TB -continue abx with rocephin/azithromycin, no change in plan -f/u cultures, quant -monitor WBC/BP
--- NOTE | 2016-12-17 17:40 | PN ---
Teaching Attending Note Name of Resident: Manuelito Esetvez ATTENDING PHYSICIAN STATEMENT I saw and evaluated the patient. I reviewed the resident's note and discussed the case with the resident. I agree with the resident's findings and plan as documented. SUBJECTIVE: feels well ready to go home! OBJECTIVE: Vital Signs Period Temp Pulse Resp BP Sys/Stack Pulse Ox Last 24 Hr 98.0 F-99.4 F 83-100 18-20 131-155/67-96 92-96 cor-rrr lungs clear abd soft,nt ext no edema CBC, BMP 12/16/16 06:00 12/16/16 06:00 Laboratory Tests 12/15/16 10:00 HIV 1&2 Antibody Screen Negative HIV P24 Antigen Negative Microbiology 12/15/16 08:00 Sputum - Expectorated AFB Smear Concentration - Preliminary 12/15/16 08:00 Sputum - Expectorated Direct Acid Fast Bacilli Smear - Final 12/15/16 08:00 Sputum - Expectorated Mycobacterial Culture - Preliminary 12/15/16 00:05 Sputum - Expectorated Gram Stain - Final 12/15/16 00:05 Sputum - Expectorated Sputum Culture - Final NORMAL RESPIRATORY BATOOL 12/16/16 10:20 Sputum - Expectorated AFB Smear Concentration - Preliminary 12/16/16 10:20 Sputum - Expectorated Direct Acid Fast Bacilli Smear - Preliminary 12/16/16 10:20 Sputum - Expectorated Mycobacterial Culture - Preliminary 12/14/16 18:39 Blood - Peripheral Venous Blood Culture - Preliminary NO GROWTH OBTAINED AFTER 48 HOURS, INCUBATION TO CONTINUE FOR 3 DAYS. 12/14/16 18:47 Blood - Peripheral Venous Blood Culture - Preliminary NO GROWTH OBTAINED AFTER 48 HOURS, INCUBATION TO CONTINUE FOR 3 DAYS. 12/15/16 07:15 Blood - Peripheral Venous TB Test (QFT) (LOC) - Preliminary 12/14/16 20:28 Urine - Urine Clean Catch Urine Culture - Final NO GROWTH OBTAINED 12/15/16 00:05 Urine For Antigen Detection Legionella Antigen - Final 12/15/16 00:05 Urine For Antigen Detection Streptococcus pneumoniae Antigen (M - Final ASSESSMENT AND PLAN: pneumonia- improving on rocephin/zithromax sputum afb smear positive! awaiting probe continue afb isolation
--- NOTE | 2016-12-17 19:03 | PN ---
Teaching Attending Note Name of Resident: Richard Mack ATTENDING PHYSICIAN STATEMENT I saw and evaluated the patient. I reviewed the resident's note and discussed the case with the resident. I agree with the resident's findings and plan as documented. SUBJECTIVE:asymptpmatic. no cough. no CP, fever, chills, N/V/C?D OBJECTIVE: Last Vital Signs Temp Pulse Resp BP Pulse Ox 98.0 F 98 H 18 155/70 95 12/17/16 14:00 12/17/16 14:00 12/17/16 14:00 12/17/16 14:00 12/17/16 10:47 General NAD CV S1 S2 RRR no murmur/rub/gallop Lungs CTA B/L no wheezing/rales/rhonchi ASSESSMENT AND PLAN: 71 yo M with no PMH who presented to the ER with fever, generalized weakness, fatigue, SOB on exertion, loss of appetite x 1 week. 1. Sepsis secondary to multilobar pneumonia- afebrile. no cough. AFB with rare Acid fast bacilli seen on 2 Cx. 3rd cx sent down today. TB pending. on Azithro/ Ceftriaxone day 3. HIV negative. ID on board. droplet precautions. 2. Acute hypoxic respiratory failure- improved. saturating 97% on RA. nebs prn 3. Acute kidney injury secondary to sepsis- resolved. renal u/s normal. 4. Hyponatremia- resolved 5. Hyperglycemia- HgbA1c 5.8 6. DVT ppx- unaware why not on dvt ppx. no contraindications known. will start lovenox
[2016-12-17] MEDS: ENOXAPARIN NA (PORCINE) 40 MG/0.4 ML DISP.SYRIN SQ SCH (19:40)
[2016-12-18 07:18] LABS: MCH 30.4 pg (25.7-33.7); MCHC 33.1 g/dl (32.0-35.9); MEAN CELL VOLUME 91.9 fl (80-96); MEAN PLT VOLUME 10.6 fl (7.5-11.1); PLATELET COUNT 282 K/MM3 (134-434); RDW 13.5 % (11.9-15.9); WHITE BLOOD COUNT 8.9 K/mm3 (4.0-10.0)
[2016-12-18 08:02] LABS: ANION GAP 8 (8-16); CALCIUM 8.4 mg/dL (8.5-10.1); CO2 33 mmol/L (21-32); GLUCOSE,RANDOM 120 mg/dL (74-106)
[2016-12-18] MEDS ORDERED: DEXTROSE 5%-WATER 100 ML IVPB ONE (08:28)
[2016-12-18] MEDS: AZITHROMYCIN 250 MG TABLET PO SCH (09:25)
[2016-12-18] MEDS: ENOXAPARIN NA (PORCINE) 40 MG/0.4 ML DISP.SYRIN SQ SCH (09:25)
[2016-12-18] MEDS: CEFTRIAXONE 2 GM in DEXTROSE 5%-WATER 100 ML IVPB SCH (09:25)
--- NOTE | 2016-12-18 11:13 | PN ---
Progress Note, Physician History of Present Illness: Patient seen and examined at bedside. Patient states that he feels completely improved. Denies shortness of breath, cough, chest pain, nausea, vomiting, fevers, chills, abdominal pain, diarrhea. - Current Medication List Current Medications: Active Medications Acetaminophen (Tylenol -) 650 mg PO Q6H PRN PRN Reason: FEVER OR PAIN Last Admin: 12/15/16 23:42 Dose: 650 mg Albuterol Sulfate (Ventolin 0.083% Nebulizer Soln -) 1 amp NEB Q4H PRN PRN Reason: SHORT OF BREATH/WHEEZING Azithromycin (Zithromax -) 500 mg PO DAILY [facility] Last Admin: 12/18/16 09:25 Dose: 500 mg Enoxaparin Sodium (Lovenox -) 40 mg SQ DAILY [facility] Last Admin: 12/18/16 09:25 Dose: 40 mg Ceftriaxone Sodium 2 gm/ (Dextrose) 100 mls @ 200 mls/hr IVPB DAILY [facility] Last Admin: 12/18/16 09:25 Dose: 200 mls/hr - Objective Vital Signs: Vital Signs Temperature 98.4 F 12/18/16 08:20 Pulse Rate 73 12/18/16 08:20 Respiratory Rate 18 12/18/16 08:20 Blood Pressure 131/79 12/18/16 08:20 O2 Sat by Pulse Oximetry (%) 99 12/18/16 08:00 Constitutional: Yes: Well Nourished, No Distress, Calm Eyes: Yes: Conjunctiva Clear, EOM Intact HENT: Yes: Atraumatic, Normocephalic Neck: Yes: Supple, Trachea Midline Cardiovascular: Yes: Regular Rate and Rhythm, S1, S2. No: Gallop, Murmur, Rub Respiratory: Yes: Regular, CTA Bilaterally. No: Rales, Rhonchi, SOB, Tachypnea Gastrointestinal: Yes: Normal Bowel Sounds, Soft. No: Tenderness Musculoskeletal: Yes: WNL Extremities: Yes: WNL Edema: No Peripheral Pulses WNL: Yes Integumentary: Yes: WNL Neurological: Yes: Alert, Oriented ...Motor Strength: WNL Psychiatric: Yes: Alert, Oriented Labs: CBC, BMP 12/18/16 06:00 12/18/16 06:00 Problem List - Problems (1) Pneumonia Code(s): J18.9 - PNEUMONIA, UNSPECIFIED ORGANISM Qualifiers: Pneumonia type: due to unspecified organism Laterality: bilateral Lung location: unspecified part of lung Qualified Code(s): J18.9 - Pneumonia, unspecified organism Assessment/Plan 71 year old male with multilobar pneumonia and rare (+) AFB sputum stain, unlikely TB -2x rare (+) AFB in sputum, waiting on 3rd -waiting on TB quant -continue abx with rocephin/azithromycin, no change in plan until results of cultures -f/u cultures, quant -monitor WBC/BP -droplet precautions
--- NOTE | 2016-12-18 11:25 | PN ---
Progress Note, Physician History of Present Illness: PULMONARY ALERT,-RESP DISTRESS,LESS COUGH - Current Medication List Current Medications: Active Medications Acetaminophen (Tylenol -) 650 mg PO Q6H PRN PRN Reason: FEVER OR PAIN Last Admin: 12/15/16 23:42 Dose: 650 mg Albuterol Sulfate (Ventolin 0.083% Nebulizer Soln -) 1 amp NEB Q4H PRN PRN Reason: SHORT OF BREATH/WHEEZING Azithromycin (Zithromax -) 500 mg PO DAILY [facility] Last Admin: 12/18/16 09:25 Dose: 500 mg Enoxaparin Sodium (Lovenox -) 40 mg SQ DAILY [facility] Last Admin: 12/18/16 09:25 Dose: 40 mg Ceftriaxone Sodium 2 gm/ (Dextrose) 100 mls @ 200 mls/hr IVPB DAILY [facility] Last Admin: 12/18/16 09:25 Dose: 200 mls/hr - Objective Vital Signs: Vital Signs Temperature 98.4 F 12/18/16 08:20 Pulse Rate 73 12/18/16 08:20 Respiratory Rate 18 12/18/16 08:20 Blood Pressure 131/79 12/18/16 08:20 O2 Sat by Pulse Oximetry (%) 99 12/18/16 08:00 Constitutional: Yes: Well Nourished, Calm Eyes: Yes: WNL HENT: Yes: WNL Neck: Yes: WNL Cardiovascular: Yes: Regular Rate and Rhythm, S1, S2 Respiratory: Yes: CTA Bilaterally Gastrointestinal: Yes: Normal Bowel Sounds, Soft Extremities: Yes: WNL Edema: No Labs: CBC, BMP 12/18/16 06:00 12/18/16 06:00 - ....Imaging Chest X-ray: Report Reviewed, Image Reviewed (-INFILTRATES,-EFFUSIONS) Assessment/Plan A/P Multilobar Pneumonia improved +Sputum AFB - continue antibiotics - f/u serum quantiferon - TB PCR - bronchoscopy if further samples needed - DVT prophylaxis DR THOMPSON Problem List - Problems (1) Pneumonia Code(s): J18.9 - PNEUMONIA, UNSPECIFIED ORGANISM Qualifiers: Pneumonia type: due to unspecified organism Laterality: bilateral Lung location: unspecified part of lung Qualified Code(s): J18.9 - Pneumonia , unspecified organism
--- NOTE | 2016-12-18 12:53 | PN ---
Teaching Attending Note Name of Resident: Richard Mack ATTENDING PHYSICIAN STATEMENT I saw and evaluated the patient. I reviewed the resident's note and discussed the case with the resident. I agree with the resident's findings and plan as documented. SUBJECTIVE:asymptomatic. denies CP, SOB, fever, chills, cough, N/V/C/D OBJECTIVE: Last Vital Signs Temp Pulse Resp BP Pulse Ox 98.4 F 73 18 131/79 99 12/18/16 08:20 12/18/16 08:20 12/18/16 08:20 12/18/16 08:20 12/18/16 08:00 General NAD CV S1 S2 RRR no murmur/rub/gallop Lungs CTA B/L no wheezing/rales/rhonchi ASSESSMENT AND PLAN: 71 yo M with no PMH who presented to the ER with fever, generalized weakness, fatigue, SOB on exertion, loss of appetite x 1 week. 1. Sepsis secondary to multi-lobar pneumonia- afebrile. no cough. AFB with rare Acid fast bacilli seen x2. 3rd cx pending. TB pending. on Azithro/Ceftriaxone day 4. HIV negative. ID on board. droplet precautions. 2. Acute hypoxic respiratory failure- improved. saturating 98% on RA. nebs prn 3. Acute kidney injury secondary to sepsis- resolved. renal u/s normal. 4. Hyponatremia- resolved 5. pre-diabetic- HgbA1c 5.8. counseled on need for dietary changes. lifestyle modifications. nutrition eval for diabetic teaching. explained will need A1c repeated in 3 months to determine if medical therapy is needed. 6. Elevated BP- intermittent elevated BP readings. overall controlled will cont to monitor. if needed will start antihypertensives. 7. DVT ppx- lovenox
--- NOTE | 2016-12-18 14:20 | PN ---
Teaching Attending Note Name of Resident: Manuelito Estevez ATTENDING PHYSICIAN STATEMENT I saw and evaluated the patient. I reviewed the resident's note and discussed the case with the resident. I agree with the resident's findings and plan as documented. SUBJECTIVE: feels well no complaints OBJECTIVE: Vital Signs Period Temp Pulse Resp BP Sys/Stack Pulse Ox Last 24 Hr 97.9 F-98.7 F 73-95 18-21 131-158/79-87 93-99 cor-rrr lungs clear abd soft,nt ext no edema CBC, BMP 12/18/16 06:00 12/18/16 06:00 afb negative times one from [facility] , flouresent positive in our lab! direct probe is negative for tb ASSESSMENT AND PLAN: awaiting 2 more sputum AFB from the [facility] awaiting Quantiferon continue rocephin /zithromax for CAP
--- NOTE | 2016-12-18 14:21 | PN ---
Physical Exam: SUBJECTIVE: Patient seen and examined at bed side. He is doing well. No acute events overnight. He denies fever, chills , CP, Palpitation, SOB, N/V/D/C. OBJECTIVE: Vital Signs Period Temp Pulse Resp BP Sys/Stack Pulse Ox Last 24 Hr 97.9 F-98.7 F 73-95 18-21 131-158/79-87 93-99 GENERAL: The patient is awake, alert, and fully oriented, in no acute distress. HEAD: Normal with no signs of trauma. EYES: PERRL, sclera anicteric, conjunctiva clear. No ptosis. ENT: Ears normal, nares patent, oropharynx clear without exudates, moist mucous membranes. NECK: Trachea midline, full range of motion, supple. LUNGS: Breath sounds equal, clear to auscultation bilaterally, no wheezes, no crackles, no accessory muscle use. HEART: Regular rate and rhythm, S1, S2 without murmur, rub or gallop. ABDOMEN: Soft, nontender, nondistended, normoactive bowel sounds, no guarding, no rebound, no hepatosplenomegaly, no masses. EXTREMITIES: 2+ pulses, warm, well-perfused, no edema. NEUROLOGICAL: Cranial nerves II through XII grossly intact. Normal speech, gait not observed. PSYCH: Normal mood, normal affect. SKIN: Warm, dry, normal turgor, no rashes or lesions noted Laboratory Results - last 24 hr 12/18/16 12/18/16 06:00 06:00 WBC 8.9 RBC 3.89 L Hgb 11.8 Hct 35.7 MCV 91.9 MCH 30.4 MCHC 33.1 RDW 13.5 Plt Count 282 D MPV 10.6 Sodium 140 Potassium 3.9 Chloride 99 Carbon Dioxide 33 H Anion Gap 8 BUN 11 Creatinine 1.0 Random Glucose 120 H Calcium 8.4 L Active Medications Generic Name Dose Route Start Last Admin Trade Name Freq PRN Reason Stop Dose Admin Acetaminophen 650 mg 12/15/16 06:29 12/15/16 23:42 Tylenol - PO 650 mg Q6H PRN Administration FEVER OR PAIN Albuterol Sulfate 1 amp 12/16/16 09:54 Ventolin 0.083% Nebulizer Soln - NEB Q4H PRN SHORT OF BREATH/WHEEZING Azithromycin 500 mg 12/15/16 10:00 12/18/16 09:25 Zithromax - PO 500 mg DAILY [facility] Administration Enoxaparin Sodium 40 mg 12/17/16 19:15 12/18/16 09:25 Lovenox - SQ 40 mg DAILY [facility] Administration Ceftriaxone Sodium 2 gm/ 100 mls @ 200 mls/hr 12/15/16 10:00 12/18/16 09:25 Dextrose IVPB 200 mls/hr DAILY [facility] Administration ASSESSMENT/PLAN: 71 Year old man from [facility] with history of chronic dry cough who presented to the ED with one week h/o generalized weakness, Fatigue , SOB on exertion,and loss of appetite X 1week. symptoms associated with fever, chills, diaphoresis and loss of appetite.Patient was admitted to med-surg for treatment of possible pneumonia. # Sepsis likely 2/2 CAP Pneumonia VS TB , improved * has fever , HR>90 , and suspected sourse of infection (lungs) * CXR shows left upper lob consolidation, CT scan shows B/L consolidation and ground glass changes, CXR today clear with No acute pathology. * Start Albuterol nebs as needed * 2 L O2 NC * Blood Culture negative X2 after 24 hours * Sputum culture normal chapis * Urine Legionella antigen negative * Echo cardiogram shows normal EF and LFV, mild MR, Moderate to sever TR , RV systolic pressure elevation at 50-60 mmhg * Air born droplet Isolation * 2 sputums for AFB culture and smear negative third is pending * mycoplasma IgM positive * TB quantiferon gold was negative * ID consult was consulted and continue Abx * Azithromycine 500 mg PO daily ,ceftriaxone 2g IV q24hrs ( approved by ID ) * LA 1.4 improved * HIV 1/2 Ab, P24 Ag negative * C-RP is 22.8 * will need outpt f/u of chest imaging to ensure resolution of infiltrates * # Hyperglycemia (pre-diabetic ) * Random Glu 120 today * trend Glu * HGA1c 5.8 * Patient education , diabetic Diet, life style modification * [employer] consult * F/U as out patient , repeat A1c in 3 months # Elevated BP , * BP 131/79 , last night 158/82 * Continue monitor * Low Na diet * will consider BP meds if continue to be elevated. * # TERRY likely 2/2 Hypovolemia vs dehydration vs hypoperfusion due to sepsis * BUN/Cr 11/1.0, unknown base line , improved * D/C IV fuids * Avoid Nephrotoxic agents * Renal US: Normal # Acute hypoxic respiratory failure * O2 to maintain O2 sat >90 % # Pulmonary nodule : * Asymptomatic , malignant vs TB * will f/u as out patient for further investigation * will need outpt f/u of chest imaging to ensure resolution of infiltrates * # Lower extremities Edema, Acute, resolved * Likely 2/2 TERRY due sepsis * Elevated legs * I/O calculate , daily weight # Hyponatremia, mild , likely 2/2 Low intake vs TERRY , vs Sepsis , resolved * Na 139 * Repeat BMP * D/C IV fluids * I/O calculate , daily weight # FEN * F: On no fluids * E: Hyponatremia , 139 resolved * N: low sodium diet * # Proph * DVT : low risk , early ambulation , Start Lovenox 40 mg SQ Daily * GI: No need * airobic isolation Dispo : * Admit to med-surg * Isolation precautions Case was discussed with medical attending and medical team Richard Mack MD .PGY1 Visit type - Emergency Visit Emergency Visit: Yes ED Registration Date: 12/14/16 Care time: The patient presented to the Emergency Department on the above date and was hospitalized for further evaluation of their emergent condition. - New Patient This patient is new to me today: No - Critical Care Critical Care patient: No - Discharge Referral Referred to [facility] Med P.C.: No
[2016-12-18] MEDS ORDERED: POLYETHYLENE GLYCOL 3350 119 GM BTL PO ONE (14:52)
--- NOTE | 2016-12-19 09:35 | PN ---
Progress Note, Physician History of Present Illness: Patient seen and examined at bedside. Patient states that he feels completely improved. Denies shortness of breath, cough, chest pain, nausea, vomiting, fevers, chills, abdominal pain, diarrhea. - Current Medication List Current Medications: Active Medications Acetaminophen (Tylenol -) 650 mg PO Q6H PRN PRN Reason: FEVER OR PAIN Last Admin: 12/15/16 23:42 Dose: 650 mg Albuterol Sulfate (Ventolin 0.083% Nebulizer Soln -) 1 amp NEB Q4H PRN PRN Reason: SHORT OF BREATH/WHEEZING Azithromycin (Zithromax -) 500 mg PO DAILY [facility] Last Admin: 12/18/16 09:25 Dose: 500 mg Enoxaparin Sodium (Lovenox -) 40 mg SQ DAILY [facility] Last Admin: 12/18/16 09:25 Dose: 40 mg Ceftriaxone Sodium 2 gm/ (Dextrose) 100 mls @ 200 mls/hr IVPB DAILY [facility] Last Admin: 12/18/16 09:25 Dose: 200 mls/hr - Objective Vital Signs: Vital Signs Temperature 98.2 F 12/19/16 06:43 Pulse Rate 84 12/19/16 06:43 Respiratory Rate 20 12/19/16 06:43 Blood Pressure 152/86 12/19/16 06:43 O2 Sat by Pulse Oximetry (%) 93 L 12/18/16 20:45 Constitutional: Yes: No Distress, Calm Eyes: Yes: Conjunctiva Clear, EOM Intact HENT: Yes: Atraumatic, Normocephalic Neck: Yes: Supple, Trachea Midline Cardiovascular: Yes: Regular Rate and Rhythm, S1, S2. No: Gallop, Murmur, Rub Respiratory: Yes: Regular, CTA Bilaterally. No: Rales, Rhonchi, SOB, Wheezes Gastrointestinal: Yes: Normal Bowel Sounds, Soft. No: Tenderness Musculoskeletal: Yes: WNL Extremities: Yes: WNL Edema: No Peripheral Pulses WNL: Yes Neurological: Yes: Alert, Oriented, Cran Nerves II-XII Intact Psychiatric: Yes: Alert, Oriented Labs: CBC, BMP 12/18/16 06:00 12/18/16 06:00 - ....Imaging Chest X-ray: Report Reviewed Problem List - Problems (1) Pneumonia Code(s): J18.9 - PNEUMONIA, UNSPECIFIED ORGANISM Qualifiers: Qualified Code(s): J18.9 - Pneumonia, unspecified organism Assessment/Plan 71 year old male with multilobar pneumonia and rare (+) AFB sputum stain -2x rare (+) AFB in sputum, 3rd AFB negative in sputum -waiting on TB quant -continue abx with rocephin/azithromycin, no change in plan until results -f/u cultures, quant -monitor WBC/BP -droplet precautions
[2016-12-19] MEDS ORDERED: DEXTROSE 5%-WATER 100 ML IVPB ONE (09:39)
[2016-12-19] MEDS: AZITHROMYCIN 250 MG TABLET PO SCH (09:59)
[2016-12-19] MEDS: ENOXAPARIN NA (PORCINE) 40 MG/0.4 ML DISP.SYRIN SQ SCH (09:59)
[2016-12-19] MEDS: CEFTRIAXONE 2 GM in DEXTROSE 5%-WATER 100 ML IVPB SCH (09:59)
--- NOTE | 2016-12-19 11:27 | PN ---
Teaching Attending Note Name of Resident: Manuelito Estevez ATTENDING PHYSICIAN STATEMENT I saw and evaluated the patient. I reviewed the resident's note and discussed the case with the resident. I agree with the resident's findings and plan as documented. SUBJECTIVE: Feels well No c/o chest pain/ dyspnea/ cough No c/o fever/ chills + rare AFB on sputum OBJECTIVE: Appears comfortable at rest cor S1S2 Lungs clear ASSESSMENT AND PLAN: Bilateral pneumonia community acquired v. atypical + AFB R/O TB v atypical mycobacterium Continue AFB precautions Await identification of AFB Continue zithromax/ ceftriaxone
--- NOTE | 2016-12-19 11:38 | PN ---
Progress Note (short form) - Note Progress Note: PULMONARY Feels at baseline. No further hemotpysis. No fevers or chills. Last Vital Signs Temp Pulse Resp BP Pulse Ox 98.2 F 73 20 152/86 94 L 12/19/16 06:43 12/19/16 10:23 12/19/16 06:43 12/19/16 06:43 12/19/16 10:23 Gen: NAD at rest Heart: RRR Lung: decreased breath sounds at the bases Abd: soft, nontender Ext: no edema CBC, BMP 12/18/16 06:00 12/18/16 06:00 Active Medications Acetaminophen (Tylenol -) 650 mg PO Q6H PRN PRN Reason: FEVER OR PAIN Last Admin: 12/15/16 23:42 Dose: 650 mg Albuterol Sulfate (Ventolin 0.083% Nebulizer Soln -) 1 amp NEB Q4H PRN PRN Reason: SHORT OF BREATH/WHEEZING Azithromycin (Zithromax -) 500 mg PO DAILY [facility] Last Admin: 12/19/16 09:59 Dose: 500 mg Enoxaparin Sodium (Lovenox -) 40 mg SQ DAILY [facility] Last Admin: 12/19/16 09:59 Dose: 40 mg Ceftriaxone Sodium 2 gm/ (Dextrose) 100 mls @ 200 mls/hr IVPB DAILY [facility] Last Admin: 12/19/16 09:59 Dose: 200 mls/hr A/P Multilobar Pneumonia +Sputum AFB Hemoptysis resolved - continue antibiotics - f/u serum quantiferon - TB PCR - will need outpt f/u of chest imaging to ensure resolution of infiltrates - DVT prophylaxis Problem List - Problems (1) Pneumonia Code(s): J18.9 - PNEUMONIA, UNSPECIFIED ORGANISM Qualifiers: Pneumonia type: due to unspecified organism Laterality: bilateral Lung location: unspecified part of lung Qualified Code(s): J18.9 - Pneumonia, unspecified organism
--- NOTE | 2016-12-19 13:22 | PN ---
Teaching Attending Note Name of Resident: Richard Mack ATTENDING PHYSICIAN STATEMENT I saw and evaluated the patient. I reviewed the resident's note and discussed the case with the resident. I agree with the resident's findings and plan as documented. SUBJECTIVE:asymptomatic. frustrated that he remains hospitalized while he feels improved. wants to go home and do "whatever treatment I need" denies Cp, SOB, fever, chills, cough OBJECTIVE: Last Vital Signs Temp Pulse Resp BP Pulse Ox 98.2 F 73 20 159/90 94 L 12/19/16 10:00 12/19/16 10:23 12/19/16 10:00 12/19/16 10:00 12/19/16 10:23 General NAD CV S1 S2 RRR no murmur/rub/gallop Lungs CTA B/L no wheezing/rales/rhonchi ASSESSMENT AND PLAN: 71 yo M with no PMH who presented to the ER with fever, generalized weakness, fatigue, SOB on exertion, loss of appetite x 1 week. 1. Sepsis secondary to multi-lobar pneumonia- afebrile. no cough. AFB with rare Acid fast bacilli seen x2. 3rd cx negative. likely atypical mycoplasma as pt has clinically improved. unknown when will have final cx report. will attempt to reach the state today to determine when results will be available. TB pending. on Azithro/Ceftriaxone day 5. HIV negative. ID on board. droplet precautions. 2. Acute hypoxic respiratory failure-resolved. saturating 98% on RA. nebs prn 3. Acute kidney injury secondary to sepsis- resolved. renal u/s normal. 4. Hyponatremia- resolved 5. pre-diabetic- HgbA1c 5.8. counseled on need for dietary changes. lifestyle modifications. nutrition eval for diabetic teaching. explained will need A1c repeated in 3 months to determine if medical therapy is needed. 6. Elevated BP- will start low dose norvasc. titrate to optimize. 7. DVT ppx- lovenox
[2016-12-19] MEDS: amLODIPine BESYLATE 2.5 MG TABLET (FP) PO SCH (13:56)
--- NOTE | 2016-12-19 14:31 | PN ---
Physical Exam: SUBJECTIVE: Patient seen and examined at bed side. He is doing well. No acute events over night.He denies any fever, chills, N/V/D/C. He denies cough, chest pain SOB. No lower extremities edema. OBJECTIVE: Vital Signs Period Temp Pulse Resp BP Sys/Stack Pulse Ox Last 24 Hr 98.2 F-99.3 F 73-85 20-20 140-159/80-95 93-96 GENERAL: The patient is awake, alert, and fully oriented, in no acute distress. HEAD: Normal with no signs of trauma. EYES: PERRL, sclera anicteric, conjunctiva clear. No ptosis. ENT: moist mucous membranes. NECK: Trachea midline, full range of motion, supple. LUNGS: Breath sounds equal, clear to auscultation bilaterally, no wheezes, no crackles, no accessory muscle use. HEART: Regular rate and rhythm, S1, S2 without murmur, rub or gallop. ABDOMEN: Soft, nontender, nondistended, normoactive bowel sounds, no guarding, no rebound, no hepatosplenomegaly, no masses. EXTREMITIES: 2+ pulses, warm, well-perfused, no edema. NEUROLOGICAL: Normal speech, gait not observed. PSYCH: Normal mood, normal affect. SKIN: Warm, dry, normal turgor, no rashes or lesions noted Laboratory Results - last 24 hr 12/18/16 12/19/16 12/19/16 06:00 07:00 07:00 ESR 80 H Sodium 140 Potassium 3.9 Chloride 99 Carbon Dioxide 33 H Anion Gap 8 BUN 11 Creatinine 1.0 Random Glucose 120 H Calcium 8.4 L C-Reactive Protein 10.6 H D Total LDL Cholesterol 83 Active Medications Generic Name Dose Route Start Last Admin Trade Name Freq PRN Reason Stop Dose Admin Acetaminophen 650 mg 12/15/16 06:29 12/15/16 23:42 Tylenol - PO 650 mg Q6H PRN Administration FEVER OR PAIN Albuterol Sulfate 1 amp 12/16/16 09:54 Ventolin 0.083% Nebulizer Soln - NEB Q4H PRN SHORT OF BREATH/WHEEZING Amlodipine Besylate 2.5 mg 12/19/16 13:15 12/19/16 13:56 Norvasc - PO 2.5 mg DAILY [facility] Administration Azithromycin 500 mg 12/15/16 10:00 12/19/16 09:59 Zithromax - PO 500 mg DAILY [facility] Administration Enoxaparin Sodium 40 mg 12/17/16 19:15 12/19/16 09:59 Lovenox - SQ 40 mg DAILY [facility] Administration Ceftriaxone Sodium 2 gm/ 100 mls @ 200 mls/hr 12/15/16 10:00 12/19/16 09:59 Dextrose IVPB 200 mls/hr DAILY [facility] Administration ASSESSMENT/PLAN: 71 Year old man from [facility] with history of chronic dry cough who presented to the ED with one week h/o generalized weakness, Fatigue , SOB on exertion,and loss of appetite X 1week. symptoms associated with fever, chills, diaphoresis and loss of appetite.Patient was admitted to med-surg for treatment of possible pneumonia. # Sepsis likely 2/2 CAP Pneumonia VS TB , improved * Day of admission had fever , HR>90 , and suspected sourse of infection (lungs ) * CXR shows left upper lob consolidation, CT scan shows B/L consolidation and ground glass changes, CXR today clear with No acute pathology. * Start Albuterol nebs as needed * 2 L O2 NC * Blood Culture negative X2 after 24 hours , 3rd culture negative * unknown when will have final cx report. will attempt to reach the state today to determine when results will be available * Sputum culture normal chapis * Urine Legionella antigen negative * Echo cardiogram shows normal EF and LFV, mild MR, Moderate to sever TR , RV systolic pressure elevation at 50-60 mmhg * Air born droplet Isolation * 2 sputums for AFB culture and smear negative third is pending * mycoplasma IgM positive * TB quantiferon gold was negative * ID consult was consulted and continue Abx * Azithromycine 500 mg PO daily ,ceftriaxone 2g IV q24hrs ( approved by ID ) * LA 1.4 improved * HIV 1/2 Ab, P24 Ag negative * C-RP is 22.8 * will need outpt f/u of chest imaging to ensure resolution of infiltrates * # Hyperglycemia (pre-diabetic ) * Random Glu 120 today * trend Glu * HGA1c 5.8 * Patient education , diabetic Diet, life style modification * Biology Laboratory Assistant consult * F/U as out patient , repeat A1c in 3 months # Elevated BP , * BP 131/79 , last night 158/82 , today 152/86 * Continue monitor * Low Na diet * will start low dose norvasc PO 12.5 daily . titrate to optimize * # TERRY likely 2/2 Hypovolemia vs dehydration vs hypoperfusion due to sepsis * BUN/Cr 11/1.0, unknown base line , improved * D/C IV fuids * Avoid Nephrotoxic agents * Renal US: Normal # Acute hypoxic respiratory failure * O2 to maintain O2 sat >90 % # Pulmonary nodule : * Asymptomatic , malignant vs TB * will f/u as out patient for further investigation * will need outpt f/u of chest imaging to ensure resolution of infiltrates * # Lower extremities Edema, Acute, resolved * Likely 2/2 TERRY due sepsis * Elevated legs * I/O calculate , daily weight # Hyponatremia, mild , likely 2/2 Low intake vs TERRY , vs Sepsis , resolved * Na 139 * Repeat BMP * D/C IV fluids * I/O calculate , daily weight # FEN * F: On no fluids * E: Hyponatremia , 139 resolved * N: low sodium diet * # Proph * DVT : low risk , early ambulation , Start Lovenox 40 mg SQ Daily * GI: No need * airobic isolation Dispo : * Admit to med-surg * Isolation droplet precautions Visit type - Emergency Visit Emergency Visit: Yes ED Registration Date: 12/14/16 Care time: The patient presented to the Emergency Department on the above date and was hospitalized for further evaluation of their emergent condition. - New Patient This patient is new to me today: No - Critical Care Critical Care patient: No - Discharge Referral Referred to [facility] Med P.C.: No
[2016-12-20 08:52] VITALS: BP 118/69; PULSE 88; TEMP 98.1
[2016-12-20] MEDS ORDERED: DEXTROSE 5%-WATER 100 ML IVPB ONE (09:18)
[2016-12-20] MEDS: CEFTRIAXONE 2 GM in DEXTROSE 5%-WATER 100 ML IVPB SCH (09:55)
[2016-12-20] MEDS: ENOXAPARIN NA (PORCINE) 40 MG/0.4 ML DISP.SYRIN SQ SCH (09:55)
[2016-12-20] MEDS: AZITHROMYCIN 250 MG TABLET PO SCH (09:56)
[2016-12-20] MEDS: amLODIPine BESYLATE 2.5 MG TABLET (FP) PO SCH (09:56)
--- NOTE | 2016-12-20 11:38 | PN ---
Progress Note, Physician History of Present Illness: PULMONARY ALERT,NAD,-SOB,-HEMOPTYSIS - Current Medication List Current Medications: Active Medications Acetaminophen (Tylenol -) 650 mg PO Q6H PRN PRN Reason: FEVER OR PAIN Last Admin: 12/15/16 23:42 Dose: 650 mg Albuterol Sulfate (Ventolin 0.083% Nebulizer Soln -) 1 amp NEB Q4H PRN PRN Reason: SHORT OF BREATH/WHEEZING Amlodipine Besylate (Norvasc -) 2.5 mg PO DAILY [facility] Last Admin: 12/20/16 09:56 Dose: 2.5 mg Azithromycin (Zithromax -) 500 mg PO DAILY [facility] Last Admin: 12/20/16 09:56 Dose: 500 mg Enoxaparin Sodium (Lovenox -) 40 mg SQ DAILY [facility] Last Admin: 12/20/16 09:55 Dose: 40 mg Ceftriaxone Sodium 2 gm/ (Dextrose) 100 mls @ 200 mls/hr IVPB DAILY [facility] Last Admin: 12/20/16 09:55 Dose: 200 mls/hr - Objective Vital Signs: Vital Signs Temperature 98.1 F 12/20/16 08:51 Pulse Rate 88 12/20/16 08:51 Respiratory Rate 20 12/20/16 08:51 Blood Pressure 118/69 12/20/16 08:51 O2 Sat by Pulse Oximetry (%) 96 12/20/16 08:00 Constitutional: Yes: Well Nourished, Calm Eyes: Yes: WNL HENT: Yes: WNL Neck: Yes: WNL Cardiovascular: Yes: Regular Rate and Rhythm, S1, S2 Respiratory: Yes: CTA Bilaterally Gastrointestinal: Yes: Normal Bowel Sounds, Soft Extremities: Yes: WNL Edema: No Labs: Assessment/Plan A/P Multilobar Pneumonia improved +Sputum AFB - antibiotics s per ID - serum quantiferon NEGATIVE - DVT prophylaxis DR THOMPSON Problem List - Problems (1) Pneumonia Code(s): J18.9 - PNEUMONIA, UNSPECIFIED ORGANISM Qualifiers: Pneumonia type: due to unspecified organism Laterality: bilateral Lung location: unspecified part of lung Qualified Code(s): J18.9 - Pneumonia , unspecified organism
--- NOTE | 2016-12-20 13:20 | PN ---
Progress Note, Physician History of Present Illness: Patient seen and examined at bedside. Patient states that he feels completely improved. Denies shortness of breath, cough, chest pain, nausea, vomiting, fevers, chills, abdominal pain, diarrhea. - Current Medication List Current Medications: Active Medications Acetaminophen (Tylenol -) 650 mg PO Q6H PRN PRN Reason: FEVER OR PAIN Last Admin: 12/15/16 23:42 Dose: 650 mg Albuterol Sulfate (Ventolin 0.083% Nebulizer Soln -) 1 amp NEB Q4H PRN PRN Reason: SHORT OF BREATH/WHEEZING Amlodipine Besylate (Norvasc -) 2.5 mg PO DAILY [facility] Last Admin: 12/20/16 09:56 Dose: 2.5 mg Azithromycin (Zithromax -) 500 mg PO DAILY [facility] Last Admin: 12/20/16 09:56 Dose: 500 mg Enoxaparin Sodium (Lovenox -) 40 mg SQ DAILY [facility] Last Admin: 12/20/16 09:55 Dose: 40 mg Ceftriaxone Sodium 2 gm/ (Dextrose) 100 mls @ 200 mls/hr IVPB DAILY [facility] Last Admin: 12/20/16 09:55 Dose: 200 mls/hr - Objective Vital Signs: Vital Signs Temperature 98.1 F 12/20/16 08:51 Pulse Rate 88 12/20/16 08:51 Respiratory Rate 20 12/20/16 08:51 Blood Pressure 118/69 12/20/16 08:51 O2 Sat by Pulse Oximetry (%) 96 12/20/16 08:00 Constitutional: Yes: No Distress, Calm Eyes: Yes: Conjunctiva Clear, EOM Intact HENT: Yes: Atraumatic, Normocephalic Neck: Yes: Supple, Trachea Midline Cardiovascular: Yes: Regular Rate and Rhythm, S1, S2. No: Gallop, Murmur Respiratory: Yes: Regular, CTA Bilaterally. No: Rales, Rhonchi, SOB, Stridor, Tachypnea, Wheezes Gastrointestinal: Yes: Normal Bowel Sounds, Soft. No: Tenderness Musculoskeletal: Yes: WNL Extremities: Yes: WNL Edema: No Peripheral Pulses WNL: Yes Integumentary: Yes: WNL Neurological: Yes: WNL, Alert, Oriented, Cran Nerves II-XII Intact ...Motor Strength: WNL Psychiatric: Yes: WNL, Alert, Oriented Labs: CBC, BMP 12/18/16 06:00 12/18/16 06:00 Problem List - Problems (1) Pneumonia Code(s): J18.9 - PNEUMONIA, UNSPECIFIED ORGANISM Qualifiers: Qualified Code(s): J18.9 - Pneumonia, unspecified organism Assessment/Plan Selected Entries 12/20/16 08:51 Temperature 98.1 F Pulse Rate 88 Respiratory 20 Rate Blood Pressure 118/69 Laboratory Tests 12/18/16 12/18/16 12/19/16 06:00 06:00 07:00 WBC 8.9 Hgb 11.8 Hct 35.7 Plt Count 282 D ESR BUN 11 Creatinine 1.0 C-Reactive Protein 10.6 H D 12/19/16 07:00 WBC Hgb Hct Plt Count ESR 80 H BUN Creatinine C-Reactive Protein Assessment/Plan: 71 year old male with multilobar pneumonia -stop isolation -stop abx -ok to discharge -2x rare (+) AFB in sputum, 3rd AFB negative in sputum -TB quant negative -cultures negative -give prevnar vaccine
--- NOTE | 2016-12-20 13:54 | PN ---
Teaching Attending Note Name of Resident: Manuelito Estevez ATTENDING PHYSICIAN STATEMENT I saw and evaluated the patient. I reviewed the resident's note and discussed the case with the resident. I agree with the resident's findings and plan as documented. SUBJECTIVE:Doing well Asymptomatic with neg TB workup to date Afebrile Ceftriaxone and Azithromycin OBJECTIVE: ASSESSMENT AND PLAN: Selected Entries 12/20/16 08:51 Temperature 98.1 F Pulse Rate 88 Respiratory 20 Rate Blood Pressure 118/69 Lung Clear ausc Cor S1 S2 RR no murmur Abd Soft nontender Laboratory Tests 12/15/16 12/18/16 12/19/16 10:00 06:00 07:00 WBC 8.9 Hgb 11.8 ESR 80 H HIV 1&2 Antibody Screen Negative HIV P24 Antigen Negative Assessment Community acquired pneumonia better day 7 therapy Plan Stop isolation Stop antibiotics Send him home He will see me in office in 2 weeks for routine follow up Prevnar if not given Yandel CEE
[2016-12-20] MEDS ORDERED: PNEUMOC 13-VAL CONJ-DIP CRM/PF 0.5 ML DISP.SYRIN IM ONE ×2 (13:58→16:00)
--- NOTE | 2016-12-20 14:13 | PN ---
Teaching Attending Note Name of Resident: Richard Mack ATTENDING PHYSICIAN STATEMENT I saw and evaluated the patient. I reviewed the resident's note and discussed the case with the resident. I agree with the resident's findings and plan as documented. SUBJECTIVE:asymptomatic. begging to go home. denies CP, SOB, fever, chills, N/V/ C/D OBJECTIVE: Last Vital Signs Temp Pulse Resp BP Pulse Ox 98.1 F 88 20 118/69 96 12/20/16 08:51 12/20/16 08:51 12/20/16 08:51 12/20/16 08:51 12/20/16 08:00 General NAD Lungs CTA B/L no wheezing/rales/rhonchi ASSESSMENT AND PLAN: 71 yo M with no PMH who presented to the ER with fever, generalized weakness, fatigue, SOB on exertion, loss of appetite x 1 week. 1. Sepsis secondary to multi-lobar pneumonia- afebrile. no cough. AFB with rare Acid fast bacilli seen x2. 3rd cx negative. AFB was seen in lab here but not at state. awaiting if can d/c isolation. as per ID pt can go home. awaiting to hear from state is pt is cleared to go home, TB negative. on Azithro/ Ceftriaxone day 6. ID on board. droplet precautions. 2. Acute hypoxic respiratory failure-resolved. saturating 98% on RA. nebs prn 3. Acute kidney injury secondary to sepsis- resolved. renal u/s normal. 4. Hyponatremia- resolved 5. pre-diabetic- HgbA1c 5.8. counseled on need for dietary changes. lifestyle modifications. nutrition eval for diabetic teaching. explained will need A1c repeated in 3 months to determine if medical therapy is needed. 6. Elevated BP- improved. continue norvasc 7. DVT ppx- lovenox 8. can d/c home once cleared from isolation by the state.
--- NOTE | 2016-12-20 16:25 | DS ---
Physical Exam: SUBJECTIVE: Patient seen and examined at bed side. He stable and ready to go home. He was cleared by ID and [facility] for TB. He denies any fever, chills, D/C/N/V. OBJECTIVE: Vital Signs Period Temp Pulse Resp BP Sys/Stack Pulse Ox Last 24 Hr 98.1 F-98.8 F 75-89 16-20 118-164/69-100 95-96 PHYSICAL EXAM GENERAL: The patient is awake, alert, and fully oriented, in no acute distress. HEAD: Normal with no signs of trauma. EYES: PERRL, extraocular movements intact, sclera anicteric, conjunctiva clear. ENT: Ears normal, nares patent, oropharynx clear without exudates, moist mucous membranes. NECK: Trachea midline, full range of motion, supple. LUNGS: Breath sounds equal, clear to auscultation bilaterally, no wheezes, no crackles, no accessory muscle use. HEART: Regular rate and rhythm, S1, S2 without murmur, rub or gallop. ABDOMEN: Soft, nontender, nondistended, normoactive bowel sounds, no guarding, no rebound, no hepatosplenomegaly, no masses. EXTREMITIES: 2+ pulses, warm, well-perfused, no edema. NEUROLOGICAL: Cranial nerves II through XII grossly intact. Normal speech, gait not observed. PSYCH: Normal mood, normal affect. SKIN: Warm, dry, normal turgor, no rashes or lesions noted. LABS HOSPITAL COURSE: Date of Admission:12/14/16 Date of Discharge: 12/20/16 71 yo M with no PMH who presented to the ER with fever, generalized weakness, fatigue, SOB on exertion, loss of appetite x 1 week. Patient was found to be septic secondary to multi lobar pneumonia he was treated with antibiotics azitro/ceftriaxone for 6 days . patient had acute hypoxic respiratory failure secondary to pneumonia which is improved with the Abx. Patient was also found to have TERRY secondary to sepsis and hyponatremia both we resolved with IV fluids and the abx. TB test came back negative and ID clear him from isolation and to go home. During the hospital course patient was found to have a little elevation of his blood pressure and we started him on Norvasc 2.5 mg and he needs to follow up with his pcp for that. Patient hgb A1 c 5.8 considered prediabetic . 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 Patient will follow up with his PCP within a week. Patient will follow up with the infectious disease in 2 weeks and he needs to repeat the CXR in 3 weeks to make sure his lungs are cleared. Patient will come back to the Ed if he developed any fever, chills or his symptoms worsen. Minutes to complete discharge: 30 <Richard Mack - Last Filed: 12/20/16 16:11> Physical Exam: pt was cleared by [facility] to go home as only 2 AFB here with +acid fast bacilli, repeat at their facility reports no growth at this point. [facility] given contact information for pt to reach if there is any change in Cx growth <Hailey Mao - Last Filed: 12/31/16 16:32> Discharge Summary Reason For Visit: PNEUMONIA Current Active Problems HTN (hypertension) (Acute) Pneumonia (Acute) Pre-diabetes (Acute) - Home Medications Comprehensive Discharge Medication List: Ambulatory Orders Amlodipine Besylate [Norvasc -] 2.5 mg PO DAILY #30 tablet 12/20/16 <Richard Mack - Last Filed: 12/20/16 16:11> - Home Medications Comprehensive Discharge Medication List: Ambulatory Orders Amlodipine Besylate [Norvasc -] 2.5 mg PO DAILY #30 tablet 12/20/16 <Hailey Mao - Last Filed: 12/31/16 16:32> Condition: Stable - Instructions Diet, Activity, Other Instructions: Please follow up with you primary care physician within one week. Please follow up with The Infectious disease within two weeks. Please take your Blood pressure medicine as prescribed (Amlodipine 2.5 mg daily ) and monitor the blood pressure, document the numbers and follow up with your primary care physician for that . Please follow diabetic diet(high fiber, vegetable and low meat and carbohydrate ) because your are pre-diabetics HGA1c 5.8 . Increase your activity as tolerated. You need to repeat the chest Xray after 3 weeks. If you develop any fever, chills or your symptoms worsen please call your primary care physician or come the Emergency room . please take the influenza vaccine and the pneumococcal vaccine on yearly bases. Referrals: Ru Humphries MD [Staff Physician] - Disposition: HOME This patient is new to me today: No Emergency Visit: Yes ED Registration Date: 12/14/16 Care time: The patient presented to the Emergency Department on the above date and was hospitalized for further evaluation of their emergent condition. Critical Care patient: No - Discharge Referral Referred to [facility] Med P.C.: No <Richard Mack - Last Filed: 12/20/16 16:11>
== END 2016-12-20 18:50 | disposition home or self-care (01) | DRG 871 ==
LOC: JER 18:19 → JERBED 20:16 → J7W 21:58 → J6S 22:39 → J4W 12-16 14:40
PROVIDERS: ADMIT Internal Medicine; ATTEND Internal Medicine
DX: A41.9 Sepsis, unspecified organism (principal); J96.01 Acute respiratory failure with hypoxia; J18.1 Lobar pneumonia, unspecified organism; N17.9 Acute kidney failure, unspecified; E87.1 Hypo-osmolality and hyponatremia; R04.2 Hemoptysis; I10 Essential (primary) hypertension; R60.9 Edema, unspecified; R91.1 Solitary pulmonary nodule
CPT/HCPCS: 36415; 71010-TC; 71250-TC; 76775-TC; 80048; 80053; 81003; 81015; 82436; 82570; 82784; 83036; 83605; 83615; 83721; 83880; 84133; 84156; 84300; 84484; 85025; 85027; 85651; 86140; 86480; 87040; 87070; 87086; 87116; 87205; 87206; 87389; 87556; 87899; 90670; 93005; 93010; 93306-TC; 99284-25

== ENCOUNTER 2020-04-25 12:28 | Inpatient (IN) | payer OTHER, BC ==
[2020-04-25 14:20] LABS: BASO % 0.2 % (0-2.0); HEMATOCRIT 40.5 % (35.4-49); HEMOGLOBIN 13.8 GM/dL (11.7-16.9); LYMPH % 20.9 % (8-40); MCH 31.6 pg (25.7-33.7); MCHC 34.1 g/dl (32.0-35.9); MEAN CELL VOLUME 92.5 fl (80-96); MEAN PLT VOLUME 10.9 fl (7.5-11.1); MONO % 13.3 % (3.8-10.2); NEUT % 65.6 % (42.8-82.8); PLATELET COUNT 184 K/MM3 (134-434); RBC 4.38 M/mm3 (4.00-5.60); RDW 13.1 % (11.9-15.9); WHITE BLOOD COUNT 5.4 K/mm3 (4.0-10.0)
[2020-04-25 14:22] LABS: VENOUS BASE EXCESS -2.6 mmol/L (-2-2); VENOUS O2 SATURATION 89.7 % (70-80); VENOUS PCO2 32.5 mmHg (38-52); VENOUS PH 7.425 (7.310-7.410)
[2020-04-25 14:26] LABS: INR 1.24 (0.83-1.09); PROTHROMBIN TIME (PATIENT) 15.2 SEC (9.7-13.0)
[2020-04-25 14:28] LABS: ACTIVATED PTT 28.8 SECONDS (25.2-36.5)
[2020-04-25 14:37] LABS: POTASSIUM 3.8 mmol/L (3.5-5.1)
[2020-04-25 14:39] LABS: ALBUMIN 2.8 g/dl (3.4-5.0); BLOOD UREA NITROGEN 28.7 mg/dL (7-18)
[2020-04-25 14:42] LABS: BILIRUBIN,DIRECT 0.4 mg/dL (0.0-0.2)
[2020-04-25 14:43] LABS: CREATININE 1.8 mg/dL (0.55-1.3)
[2020-04-25] MEDS ORDERED: DEXAMETHASONE SOD PHOSPHATE 4 MG/1 ML VIAL IVPUSH ONE (14:43)
[2020-04-25] MEDS ORDERED: ACETAMINOPHEN 1000 MG/100 ML VIAL (NON FORMULARY) IVPB ONE (14:43)
[2020-04-25 14:44] LABS: BILIRUBIN,TOTAL 0.8 mg/dL (0.2-1)
[2020-04-25] MEDS ORDERED: DEXAMETHASONE SOD PHOSPHATE 10 MG/1 ML VIAL ONE (15:38)
[2020-04-25] MEDS ORDERED: ACETAMINOPHEN INJECTION 100 ML IVPB ONE (15:38)
[2020-04-25] MEDS ORDERED: AZITHROMYCIN IVPB 500 MG in DEXTROSE 5%-WATER - 250 ML IVPB ONE (16:06)
[2020-04-25] MEDS ORDERED: AZITHROMYCIN IVPB 500 MG/250 ML BAG IVPB ONE (16:41)
[2020-04-25] MEDS ORDERED: CEFTRIAXONE 1 GM/50 ML BAG ONE (16:41)
[2020-04-25] MEDS ORDERED: SODIUM CHLORIDE 1,000 ML IV SCH (16:45)
[2020-04-25 17:22] LABS: INR 1.28 (0.83-1.09); PROTHROMBIN TIME (PATIENT) 15.6 SEC (9.7-13.0)
[2020-04-25 17:25] LABS: ACTIVATED PTT 29.8 SECONDS (25.2-36.5)
[2020-04-25] MEDS ORDERED: ENOXAPARIN NA (PORCINE) 100 MG/1 ML DISP.SYRIN SQ SCH (18:30)
[2020-04-25] MEDS ORDERED: ASPIRIN 300 MG SUPP.RECT PR ONE (18:39)
[2020-04-25] MEDS ORDERED: ASPIRIN 300 MG SUPP.RECT RC ONE (19:46)
[2020-04-25] MEDS ORDERED: HEPARIN NA (PORCINE) 5,000 UNITS/ML 1ML VIAL SQ SCH (22:00)
[2020-04-25] MEDS ORDERED: HEPARIN NA (PORCINE) 5,000 UNITS/ML 1ML VIAL ONE (22:52)
[2020-04-25] MEDS: HEPARIN NA (PORCINE) 5,000 UNITS/ML 1ML VIAL SQ SCH (23:03)
[2020-04-26] MEDS ORDERED: HEPARIN NA (PORCINE) 5,000 UNITS/ML 1ML VIAL ONE (06:04)
[2020-04-26] MEDS: HEPARIN NA (PORCINE) 5,000 UNITS/ML 1ML VIAL SQ SCH (06:10)
[2020-04-26 07:53] LABS: HEMOGLOBIN 13.8 GM/dL (11.7-16.9); MCH 31.4 pg (25.7-33.7); MCHC 33.7 g/dl (32.0-35.9); MEAN CELL VOLUME 93.2 fl (80-96); MEAN PLT VOLUME 10.8 fl (7.5-11.1); PLATELET COUNT 191 K/MM3 (134-434); RBC 4.39 M/mm3 (4.00-5.60); RDW 13.2 % (11.9-15.9); WHITE BLOOD COUNT 4.3 K/mm3 (4.0-10.0)
[2020-04-26 08:08] LABS: POTASSIUM 4.7 mmol/L (3.5-5.1)
[2020-04-26 08:13] LABS: ALBUMIN 2.6 g/dl (3.4-5.0); BLOOD UREA NITROGEN 24.7 mg/dL (7-18); CALCIUM 8.1 mg/dL (8.5-10.1)
[2020-04-26 08:16] LABS: CREATININE 1.2 mg/dL (0.55-1.3)
[2020-04-26 08:17] LABS: PHOSPHOROUS 2.9 mg/dL (2.5-4.9)
[2020-04-26 08:18] LABS: BILIRUBIN,TOTAL 0.8 mg/dL (0.2-1); TOT PROT 6.7 g/dl (6.4-8.2)
[2020-04-26] MEDS ORDERED: DEXAMETHASONE SOD PHOSPHATE 10 MG/1 ML VIAL ONE (11:05)
[2020-04-26] MEDS: DEXAMETHASONE SOD PHOSPHATE 4 MG/1 ML VIAL IVPUSH SCH (11:09)
[2020-04-26] MEDS: CEFTRIAXONE 1 GM in DEXTROSE 5%-WATER - 50 ML IVPB SCH (11:29)
[2020-04-26] MEDS: AZITHROMYCIN IVPB 250 MG in DEXTROSE 5%-WATER - 250 ML IVPB SCH (12:18)
[2020-04-26 12:37] LABS: EPI CELLS >36 /uL (0-25.1); HYALINE CASTS 11 /uL (0-3.1); PH,URINE 5.5 (5.0-8.0); URINE APPEARANCE CLEAR; URINE BACTERIA 102 /uL (0-1359); URINE BILIRUBIN NEGATIVE (NEGATIVE); URINE COLOR YELLOW; URINE GLUCOSE (UA) NEGATIVE (NEGATIVE); URINE KETONE NEGATIVE (NEGATIVE); URINE LEUK ESTERASE 1+ (NEGATIVE); URINE NITRITE NEGATIVE (NEGATIVE); URINE PROTEIN 1+ (NEGATIVE); URINE RBC 11 /uL (0-23.9); URINE WBC 12 /uL (0-25.8)
[2020-04-26] MEDS: ZINC SULFATE 220 MG CAPSULE (FP) PO SCH (23:08)
[2020-04-26] MEDS: APIXABAN 5 MG TABLET PO SCH (23:08)
[2020-04-26] MEDS: ASCORBIC ACID 500 MG TABLET (FP) PO SCH (23:08)
[2020-04-26] MEDS: FAMOTIDINE 20 MG/50 ML IVPB 20 MG/50 ML MG IVPB SCH (23:08)
[2020-04-27 07:32] LABS: BASO % 0.1 % (0-2.0); HEMOGLOBIN 12.9 GM/dL (11.7-16.9); LYMPH % 7.6 % (8-40); MCH 31.3 pg (25.7-33.7); MEAN PLT VOLUME 10.7 fl (7.5-11.1); MONO % 9.2 % (3.8-10.2); NEUT % 83.1 % (42.8-82.8); PLATELET COUNT 240 K/MM3 (134-434); RBC 4.12 M/mm3 (4.00-5.60); RDW 13.1 % (11.9-15.9); WHITE BLOOD COUNT 9.1 K/mm3 (4.0-10.0)
[2020-04-27 07:50] LABS: CHLORIDE 106 mmol/L (98-107); POTASSIUM 4.4 mmol/L (3.5-5.1); SODIUM 138 mmol/L (136-145)
[2020-04-27 07:55] LABS: ALBUMIN 2.5 g/dl (3.4-5.0)
[2020-04-27 07:56] LABS: ANION GAP 8 MMOL/L (8-16); BLOOD UREA NITROGEN 23.1 mg/dL (7-18); CALCIUM 8.2 mg/dL (8.5-10.1); CO2 25 mmol/L (21-32); MAGNESIUM 2.1 mg/dL (1.8-2.4)
[2020-04-27 07:57] LABS: GLUCOSE,RANDOM 164 mg/dL (74-106)
[2020-04-27 07:58] LABS: SGPT/ALT 39 U/L (13-61)
[2020-04-27 07:59] LABS: PHOSPHOROUS 2.3 mg/dL (2.5-4.9); SGOT/AST 49 U/L (15-37)
[2020-04-27 08:00] LABS: BILIRUBIN,TOTAL 0.8 mg/dL (0.2-1); TOT PROT 6.3 g/dl (6.4-8.2)
[2020-04-27 08:01] LABS: ALK PHOS 80 U/L (45-117)
[2020-04-27] MEDS ORDERED: cefTRIAXone SODIUM 1 GM VIAL ONE (09:33)
[2020-04-27] MEDS ORDERED: DEXTROSE 5%-WATER - 50 ML IVPB ONE (09:34)
[2020-04-27] MEDS: CEFTRIAXONE 1 GM in DEXTROSE 5%-WATER - 50 ML IVPB SCH (09:42)
[2020-04-27] MEDS: FAMOTIDINE 20 MG/50 ML IVPB 20 MG/50 ML MG IVPB SCH ×2 (09:55→21:32)
[2020-04-27] MEDS: APIXABAN 5 MG TABLET PO SCH ×2 (09:56→21:32)
[2020-04-27] MEDS: CHOLECALCIFEROL (VIT D3) 1,000 UNIT (25 MCG) TABLET PO SCH (09:56)
[2020-04-27] MEDS: ASCORBIC ACID 500 MG TABLET (FP) PO SCH ×2 (09:56→21:32)
[2020-04-27] MEDS: ZINC SULFATE 220 MG CAPSULE (FP) PO SCH ×2 (09:56→21:32)
[2020-04-27] MEDS: DEXAMETHASONE SOD PHOSPHATE 4 MG/1 ML VIAL IVPUSH SCH (10:01)
[2020-04-27] MEDS ORDERED: REMDESIVIR 200 MG in SODIUM CHLORIDE 210 ML IVPB ONE (10:06)
[2020-04-27] MEDS ORDERED: PT OWN MED DRAWER 7, Y5N ONE (11:19)
[2020-04-27] MEDS: AZITHROMYCIN IVPB 250 MG in DEXTROSE 5%-WATER - 250 ML IVPB SCH ×2 (11:24→11:55)
[2020-04-27 13:45] LABS: LDH QNS U/L (87-246); N-TERMINAL BNP QNS pg/ml (5-125)
[2020-04-28] MEDS ORDERED: LORazepam 2 MG/ML SDV VIAL IVPUSH ONE ×3 (05:06→07:30)
[2020-04-28 06:06] LABS: ARTERIAL BLD GAS O2 SATURATION 84.1 mmHg (95-98); ARTERIAL BLOOD GAS BASE EXCESS -3.8 mmol/L (-2-2); ARTERIAL BLOOD GAS PO2 48.1 mmHg (80-100); ARTERIAL BLOOD GAS pH 7.394 (7.350-7.450)
[2020-04-28 06:07] LABS: ALLENS TEST POSITIVE
[2020-04-28 06:08] LABS: VENT MODE S/T; VENT RATE 18
[2020-04-28] MEDS ORDERED: MIDAZOLAM HCL 2 MG/2 ML SINGLE DOSE VIAL IVPUSH ONE ×2 (07:06→11:26)
[2020-04-28] MEDS ORDERED: SUCCINYLCHOLINE CHLORIDE 200 MG/10 ML VIAL IVPUSH ONE (07:07)
[2020-04-28] MEDS: PROPOFOL 1,000,000 MCG/100 ML VIAL IVPB SCH ×4 (07:51→20:00)
[2020-04-28] MEDS ORDERED: VECURONIUM BROMIDE 100 MG/100 ML BAG IVPB SCH (09:30)
[2020-04-28] MEDS ORDERED: REMDESIVIR 100 MG in SODIUM CHLORIDE 230 ML IVPB SCH (10:06)
[2020-04-28 10:14] LABS: BASO % 0.2 % (0-2.0); HEMOGLOBIN 12.6 GM/dL (11.7-16.9); LYMPH % 2.4 % (8-40); MCH 30.8 pg (25.7-33.7); MCHC 33.2 g/dl (32.0-35.9); MEAN CELL VOLUME 92.7 fl (80-96); MEAN PLT VOLUME 9.7 fl (7.5-11.1); NEUT % 91.4 % (42.8-82.8); PLATELET COUNT 190 K/MM3 (134-434); RDW 13.2 % (11.9-15.9); WHITE BLOOD COUNT 15.5 K/mm3 (4.0-10.0)
[2020-04-28 10:29] LABS: POTASSIUM 4.7 mmol/L (3.5-5.1)
[2020-04-28] MEDS: ZINC SULFATE 220 MG CAPSULE (FP) PO SCH ×2 (10:30→21:15)
[2020-04-28] MEDS: DEXAMETHASONE 4 MG TABLET (FP) PO SCH (10:30)
[2020-04-28] MEDS: APIXABAN 5 MG TABLET PO SCH (10:30)
[2020-04-28 10:31] LABS: ALBUMIN 2.6 g/dl (3.4-5.0); BLOOD UREA NITROGEN 25.1 mg/dL (7-18); CALCIUM 8.3 mg/dL (8.5-10.1); MAGNESIUM 2.2 mg/dL (1.8-2.4)
[2020-04-28] MEDS: CHOLECALCIFEROL (VIT D3) 1,000 UNIT (25 MCG) TABLET PO SCH (10:31)
[2020-04-28] MEDS: ASCORBIC ACID 500 MG TABLET (FP) PO SCH ×2 (10:31→21:15)
[2020-04-28] MEDS: FAMOTIDINE 20 MG/50 ML IVPB 20 MG/50 ML MG IVPB SCH ×2 (10:32→21:15)
[2020-04-28 10:33] LABS: BLOOD UREA NITROGEN 24.1 mg/dL (7-18)
[2020-04-28 10:34] LABS: CREATININE 1.6 mg/dL (0.55-1.3); PHOSPHOROUS 4.5 mg/dL (2.5-4.9)
[2020-04-28 10:36] LABS: BILIRUBIN,TOTAL 0.8 mg/dL (0.2-1); CREATININE 1.6 mg/dL (0.55-1.3); TOT PROT 6.6 g/dl (6.4-8.2)
[2020-04-28 10:41] LABS: N-TERMINAL BNP 1824.9 pg/ml (5-125)
[2020-04-28 11:23] LABS: ARTERIAL BLD GAS O2 SATURATION 97.2 mmHg (95-98); ARTERIAL BLOOD GAS BASE EXCESS -1.6 mmol/L (-2-2); ARTERIAL BLOOD GAS PO2 105.6 mmHg (80-100); ARTERIAL BLOOD GAS pH 7.287 (7.350-7.450)
[2020-04-28 11:25] LABS: ALLENS TEST POSITIVE; VENT MODE AC; VENT RATE 20
[2020-04-28] MEDS ORDERED: ACETAMINOPHEN 1000 MG/100 ML VIAL (NON FORMULARY) IVPB PRN (11:26)
[2020-04-28] MEDS ORDERED: MIDAZOLAM 100 MG/100 ML MG IVPB ONE ×2 (11:28→19:48)
[2020-04-28] MEDS: ENOXAPARIN NA (PORCINE) 100 MG/1 ML DISP.SYRIN SQ SCH ×2 (12:48→21:13)
[2020-04-28] MEDS: MIDAZOLAM 100 MG in SODIUM CHLORIDE 100 ML IVPB SCH (14:00)
[2020-04-28] MEDS ORDERED: CEFEPIME HCL 1 GM VIAL (RESTRICTED TO ID) ONE ×3 (14:25→23:46)
[2020-04-28] MEDS ORDERED: DEXTROSE 5%-WATER 100 ML IVPB ONE ×3 (14:26→23:46)
[2020-04-28] MEDS: CEFEPIME 1 GM in DEXTROSE 5%-WATER 1 GM/100 ML BAG IVPB SCH ×2 (14:30→18:21)
[2020-04-28 14:37] LABS: ANISOCYTOSIS 1+; MACROCYTOSIS 0; PLATELET ESTIMATE NORMAL; TEAR DROP CELLS 1+
[2020-04-28] MEDS ORDERED: VASOPRESSIN 40 UNITS in SODIUM CHLORIDE 98 ML IVPB SCH (18:15)
[2020-04-28] MEDS: NOREPINEPHRINE BITARTRATE 16,000 MCG in SODIUM CHLORIDE 484 ML IV SCH (20:10)
[2020-04-28] MEDS ORDERED: NOREPINEPHRINE BITARTRATE 8,000 MCG/500 ML BAG IVPB ONE (20:25)
[2020-04-29] MEDS: PROPOFOL 1,000,000 MCG/100 ML VIAL IVPB SCH ×2 (02:00→07:14)
[2020-04-29] MEDS: CEFEPIME 1 GM in DEXTROSE 5%-WATER 1 GM/100 ML BAG IVPB SCH ×3 (02:29→18:11)
[2020-04-29 07:37] LABS: HEMATOCRIT 38.2 % (35.4-49); HEMOGLOBIN 12.4 GM/dL (11.7-16.9); MCH 30.9 pg (25.7-33.7); MCHC 32.4 g/dl (32.0-35.9); MEAN CELL VOLUME 95.3 fl (80-96); MEAN PLT VOLUME 10.2 fl (7.5-11.1); PLATELET COUNT 214 K/MM3 (134-434); RBC 4.01 M/mm3 (4.00-5.60); RDW 13.7 % (11.9-15.9); WHITE BLOOD COUNT 17.2 K/mm3 (4.0-10.0)
[2020-04-29 07:49] LABS: ALBUMIN 2.5 g/dl (3.4-5.0); CALCIUM 7.7 mg/dL (8.5-10.1); MAGNESIUM 2.2 mg/dL (1.8-2.4)
[2020-04-29 07:52] LABS: CREATININE 4.3 mg/dL (0.55-1.3); PHOSPHOROUS 6.4 mg/dL (2.5-4.9)
[2020-04-29 07:53] LABS: BILIRUBIN,TOTAL 0.7 mg/dL (0.2-1); TOT PROT 6.3 g/dl (6.4-8.2)
[2020-04-29 08:06] LABS: BLOOD UREA NITROGEN 51.6 mg/dL (7-18)
[2020-04-29 09:09] LABS: ERYTHROCYTE SEDIMENTATION RATE 40 mm/hr (0-20)
[2020-04-29] MEDS ORDERED: DEXTROSE 5%-WATER 100 ML IVPB ONE ×2 (09:10→17:52)
[2020-04-29] MEDS ORDERED: CEFEPIME HCL 1 GM VIAL (RESTRICTED TO ID) ONE ×2 (09:10→17:52)
[2020-04-29] MEDS: ENOXAPARIN NA (PORCINE) 100 MG/1 ML DISP.SYRIN SQ SCH ×2 (09:39→23:01)
[2020-04-29] MEDS: ASCORBIC ACID 500 MG TABLET (FP) PO SCH ×2 (09:39→23:02)
[2020-04-29] MEDS: FAMOTIDINE 20 MG/50 ML IVPB 20 MG/50 ML MG IVPB SCH ×2 (09:39→23:02)
[2020-04-29] MEDS: CHOLECALCIFEROL (VIT D3) 1,000 UNIT (25 MCG) TABLET PO SCH (09:39)
[2020-04-29] MEDS: ZINC SULFATE 220 MG CAPSULE (FP) PO SCH ×2 (09:39→23:01)
[2020-04-29] MEDS: DEXAMETHASONE 4 MG TABLET (FP) PO SCH ×2 (09:45→10:23)
[2020-04-29] MEDS: VECURONIUM BROMIDE 100 MG/100 ML BAG IVPB SCH (10:02)
[2020-04-29] MEDS ORDERED: DEXAMETHASONE SOD PHOSPHATE 4 MG/1 ML VIAL IVPUSH ONE (10:13)
[2020-04-29] MEDS ORDERED: FENTANYL NS IVPB 500 MCG/100 ML BAG IVPB ONE (10:14)
[2020-04-29] MEDS: FENTANYL NS IVPB 500 MCG/100 ML BAG IVPB SCH (10:17)
[2020-04-29 13:03] LABS: ARTERIAL BLD GAS O2 SATURATION 99.2 mmHg (95-98); ARTERIAL BLOOD GAS BASE EXCESS -7.8 mmol/L (-2-2); ARTERIAL BLOOD GAS PO2 211.6 mmHg (80-100); ARTERIAL BLOOD GAS pH 7.224 (7.350-7.450)
[2020-04-29 13:04] LABS: ALLENS TEST POSITIVE
[2020-04-29 13:05] LABS: VENT MODE AC; VENT RATE 24
[2020-04-29] MEDS ORDERED: SODIUM CHLORIDE 500 ML IV STA (17:39)
[2020-04-30 06:43] LABS: ALLENS TEST POSITIVE; ARTERIAL BLD GAS O2 SATURATION 98.9 mmHg (95-98); ARTERIAL BLOOD GAS BASE EXCESS -9.2 mmol/L (-2-2); ARTERIAL BLOOD GAS PO2 178.4 mmHg (80-100); ARTERIAL BLOOD GAS pH 7.202 (7.350-7.450)
[2020-04-30 06:44] LABS: VENT MODE A/C; VENT RATE 24
[2020-04-30] MEDS ORDERED: CEFEPIME HCL 1 GM VIAL (RESTRICTED TO ID) ONE ×2 (06:46→17:41)
[2020-04-30] MEDS ORDERED: DEXTROSE 5%-WATER 100 ML IVPB ONE ×2 (06:46→17:41)
[2020-04-30] MEDS: CEFEPIME 1 GM in DEXTROSE 5%-WATER 1 GM/100 ML BAG IVPB SCH ×2 (06:56→18:02)
[2020-04-30 07:02] LABS: HEMOGLOBIN 11.8 GM/dL (11.7-16.9); MCH 31.1 pg (25.7-33.7); MCHC 32.8 g/dl (32.0-35.9); MEAN CELL VOLUME 94.8 fl (80-96); MEAN PLT VOLUME 10.6 fl (7.5-11.1); PLATELET COUNT 164 K/MM3 (134-434); RDW 13.8 % (11.9-15.9); WHITE BLOOD COUNT 16.1 K/mm3 (4.0-10.0)
[2020-04-30] MEDS: NOREPINEPHRINE BITARTRATE 16,000 MCG in SODIUM CHLORIDE 484 ML IV SCH (08:39)
[2020-04-30 08:50] LABS: ALBUMIN 2.1 g/dl (3.4-5.0); BILIRUBIN,TOTAL 0.6 mg/dL (0.2-1); BLOOD UREA NITROGEN 81.5 mg/dL (7-18); CALCIUM 7.2 mg/dL (8.5-10.1); CREATININE 6.8 mg/dL (0.55-1.3); MAGNESIUM 2.6 mg/dL (1.8-2.4); PHOSPHOROUS 8.5 mg/dL (2.5-4.9); POTASSIUM 5.6 mmol/L (3.5-5.1); TOT PROT 5.9 g/dl (6.4-8.2)
[2020-04-30] MEDS: CHOLECALCIFEROL (VIT D3) 1,000 UNIT (25 MCG) TABLET PO SCH (09:07)
[2020-04-30] MEDS: ZINC SULFATE 220 MG CAPSULE (FP) PO SCH ×2 (09:07→22:54)
[2020-04-30] MEDS: FAMOTIDINE 20 MG/50 ML IVPB 20 MG/50 ML MG IVPB SCH ×2 (09:07→22:54)
[2020-04-30] MEDS: ENOXAPARIN NA (PORCINE) 100 MG/1 ML DISP.SYRIN SQ SCH (09:07)
[2020-04-30] MEDS: ASCORBIC ACID 500 MG TABLET (FP) PO SCH ×2 (09:07→22:54)
[2020-04-30] MEDS ORDERED: LACTATED RINGERS SOLUTION 1000 ML INFUS.BAG IV ONE (09:26)
[2020-04-30] MEDS ORDERED: SODIUM BICARBONATE 8.4% 50 MEQ/50 ML DISP.SYRIN IVPUSH ONE (09:30)
[2020-04-30] MEDS ORDERED: DEXTROSE 50%-WATER - 25 GM/50 ML VIAL IVPUSH ONE (09:32)
[2020-04-30] MEDS ORDERED: INSULIN REGULAR HUMAN 100 UNITS/ML *VIAL IVPUSH ONE (09:32)
[2020-04-30] MEDS ORDERED: DEXTROSE 50%-WATER - 25 GM/50 ML VIAL ONE (09:35)
[2020-04-30] MEDS ORDERED: SODIUM BICARBONATE 8.4% 50 MEQ/50 ML VIAL ONE ×2 (09:35→09:52)
[2020-04-30] MEDS: SODIUM ZIRCONIUM CYCLOSILICATE (LOKELMA) 5 GM PACKET PO SCH (09:55)
[2020-04-30] MEDS ORDERED: DEXAMETHASONE SOD PHOSPHATE 4 MG/1 ML VIAL IVPUSH ONE (10:00)
[2020-04-30] MEDS ORDERED: LACTATED RINGERS SOLUTION 1,000 ML/1,000 ML INFUS.BAG IV SCH (10:00)
[2020-04-30] MEDS: VECURONIUM BROMIDE 100 MG/100 ML BAG IVPB SCH (12:49)
[2020-04-30] MEDS ORDERED: SODIUM CHLORIDE 1,000 ML IV SCH (14:15)
[2020-04-30] MEDS ORDERED: MIDAZOLAM 100 MG/100 ML MG IVPB ONE (14:23)
[2020-04-30] MEDS: MIDAZOLAM 100 MG in SODIUM CHLORIDE 100 ML IVPB SCH ×2 (15:00→18:02)
[2020-04-30] MEDS: FENTANYL NS IVPB 500 MCG/100 ML BAG IVPB SCH ×2 (15:06→21:19)
[2020-05-01] MEDS ORDERED: MIDAZOLAM 100 MG/100 ML MG IVPB ONE ×3 (01:38→23:53)
[2020-05-01 06:18] LABS: ARTERIAL BLD GAS O2 SATURATION 97.1 mmHg (95-98); ARTERIAL BLOOD GAS PO2 108.1 mmHg (80-100); ARTERIAL BLOOD GAS pH 7.236 (7.350-7.450)
[2020-05-01 06:25] LABS: ALLENS TEST POSITIVE; VENT MODE A/C; VENT RATE 24
[2020-05-01] MEDS ORDERED: DEXTROSE 5%-WATER 100 ML IVPB ONE ×2 (06:33→18:01)
[2020-05-01] MEDS ORDERED: CEFEPIME HCL 1 GM VIAL (RESTRICTED TO ID) ONE ×2 (06:33→18:01)
[2020-05-01] MEDS: CEFEPIME 1 GM in DEXTROSE 5%-WATER 1 GM/100 ML BAG IVPB SCH ×2 (06:51→18:04)
[2020-05-01 07:13] LABS: HEMATOCRIT 32.4 % (35.4-49); HEMOGLOBIN 10.7 GM/dL (11.7-16.9); MCH 31.2 pg (25.7-33.7); MCHC 33.2 g/dl (32.0-35.9); MEAN CELL VOLUME 94.1 fl (80-96); MEAN PLT VOLUME 10.6 fl (7.5-11.1); PLATELET COUNT 171 K/MM3 (134-434); RBC 3.44 M/mm3 (4.00-5.60); RDW 13.4 % (11.9-15.9); WHITE BLOOD COUNT 12.9 K/mm3 (4.0-10.0)
[2020-05-01 08:25] LABS: ALBUMIN 1.8 g/dl (3.4-5.0); BILIRUBIN,TOTAL 0.6 mg/dL (0.2-1); MAGNESIUM 2.5 mg/dL (1.8-2.4); PHOSPHOROUS 8.4 mg/dL (2.5-4.9); POTASSIUM 5.3 mmol/L (3.5-5.1); TOT PROT 5.4 g/dl (6.4-8.2)
[2020-05-01 08:32] LABS: BLOOD UREA NITROGEN 105.3 mg/dL (7-18)
[2020-05-01 08:33] LABS: CALCIUM 6.6 mg/dL (8.5-10.1)
[2020-05-01] MEDS: FENTANYL NS IVPB 500 MCG/100 ML BAG IVPB SCH (09:14)
[2020-05-01] MEDS ORDERED: HEPARIN NA (PORCINE) 5,000 UNITS/ML 1ML VIAL IVPUSH PRN ×2 (09:18)
[2020-05-01] MEDS: SODIUM CHLORIDE 1,000 ML IV SCH (10:00)
[2020-05-01] MEDS: SODIUM ZIRCONIUM CYCLOSILICATE (LOKELMA) 5 GM PACKET PO SCH (10:05)
[2020-05-01] MEDS: ASCORBIC ACID 500 MG TABLET (FP) PO SCH ×2 (10:06→23:11)
[2020-05-01] MEDS: CHOLECALCIFEROL (VIT D3) 1,000 UNIT (25 MCG) TABLET PO SCH (10:06)
[2020-05-01] MEDS: ZINC SULFATE 220 MG CAPSULE (FP) PO SCH ×2 (10:06→23:12)
[2020-05-01] MEDS: FAMOTIDINE 20 MG/50 ML IVPB 20 MG/50 ML MG IVPB SCH ×2 (10:07→23:12)
[2020-05-01 11:20] LABS: EPI CELLS 8 /uL (0-25.1); HYALINE CASTS 1 /uL (0-3.1); URINE APPEARANCE TURBID; URINE BACTERIA 16 /uL (0-1359); URINE BILIRUBIN NEGATIVE (NEGATIVE); URINE COLOR YELLOW; URINE GLUCOSE (UA) NEGATIVE (NEGATIVE); URINE KETONE NEGATIVE (NEGATIVE); URINE LEUK ESTERASE NEGATIVE (NEGATIVE); URINE NITRITE NEGATIVE (NEGATIVE); URINE PROTEIN 1+ (NEGATIVE); URINE UROBILINOGEN 0.2 mg/dL (0.2-1.0); URINE WBC 54 /uL (0-25.8)
[2020-05-01] MEDS ORDERED: PT OWN MED DRAWER 7, Y5N ONE (11:38)
[2020-05-01] MEDS ORDERED: ASPIRIN 81 MG CHEWABLE TABLETS PO ONE (13:06)
[2020-05-01 13:18] LABS: INR 1.52 (0.83-1.09); PROTHROMBIN TIME (PATIENT) 18.5 SEC (9.7-13.0)
[2020-05-01] MEDS: MIDAZOLAM 100 MG in SODIUM CHLORIDE 100 ML IVPB SCH (14:36)
[2020-05-01] MEDS: METOPROLOL TARTRATE 5 MG/5 ML VIAL IVPUSH SCH ×2 (14:42→21:31)
[2020-05-01 15:25] LABS: URINE RBC 492.6 /uL (0-23.9)
[2020-05-01] MEDS: AMINO ACIDS/PROTEIN HYDROLYS 30 ML LIQUID.PKT PO SCH (17:53)
[2020-05-01] MEDS: HEPARIN - 25,000 UNIT in SODIUM CHLORIDE 495 ML IV SCH (19:00)
[2020-05-01] MEDS ORDERED: PROPOFOL 1,000,000 MCG/100 ML VIAL ONE (23:53)
[2020-05-01] MEDS ORDERED: FENTANYL NS IVPB 500 MCG/100 ML BAG IVPB ONE (23:53)
[2020-05-01] MEDS ORDERED: VECURONIUM BROMIDE 100 MG/100 ML BAG ONE (23:58)
[2020-05-02] MEDS ORDERED: VECURONIUM BROMIDE 10 MG/10 ML VIAL IV ONE (00:05)
[2020-05-02] MEDS: VECURONIUM BROMIDE 100 MG/100 ML BAG IVPB SCH ×2 (00:15→11:00)
[2020-05-02] MEDS: METOPROLOL TARTRATE 5 MG/5 ML VIAL IVPUSH SCH ×4 (02:36→22:00)
[2020-05-02] MEDS ORDERED: DEXTROSE 5%-WATER 100 ML IVPB ONE ×2 (05:34→17:30)
[2020-05-02] MEDS ORDERED: CEFEPIME HCL 1 GM VIAL (RESTRICTED TO ID) ONE ×2 (05:34→17:30)
[2020-05-02] MEDS: CEFEPIME 1 GM in DEXTROSE 5%-WATER 1 GM/100 ML BAG IVPB SCH ×2 (06:07→17:55)
[2020-05-02 07:03] LABS: INR 1.29 (0.83-1.09); PROTHROMBIN TIME (PATIENT) 15.8 SEC (9.7-13.0)
[2020-05-02] MEDS: FAMOTIDINE 20 MG/50 ML IVPB 20 MG/50 ML MG IVPB SCH ×2 (09:30→22:57)
[2020-05-02] MEDS: HEPARIN - 25,000 UNIT in SODIUM CHLORIDE 495 ML IV SCH (09:30)
[2020-05-02 09:31] LABS: MAGNESIUM 2.4 mg/dL (1.8-2.4); POTASSIUM 5.3 mmol/L (3.5-5.1)
[2020-05-02 09:32] LABS: PHOSPHOROUS 8.9 mg/dL (2.5-4.9)
[2020-05-02] MEDS: ASCORBIC ACID 500 MG TABLET (FP) PO SCH ×2 (09:32→22:57)
[2020-05-02] MEDS: CHOLECALCIFEROL (VIT D3) 1,000 UNIT (25 MCG) TABLET PO SCH (09:32)
[2020-05-02] MEDS: AMINO ACIDS/PROTEIN HYDROLYS 30 ML LIQUID.PKT PO SCH ×3 (09:32→17:25)
[2020-05-02] MEDS: ZINC SULFATE 220 MG CAPSULE (FP) PO SCH ×2 (09:32→22:57)
[2020-05-02] MEDS: SODIUM ZIRCONIUM CYCLOSILICATE (LOKELMA) 5 GM PACKET PO SCH ×2 (09:32→09:46)
[2020-05-02 09:37] LABS: BILIRUBIN,TOTAL 0.9 mg/dL (0.2-1); TOT PROT 5.8 g/dl (6.4-8.2)
[2020-05-02 09:38] LABS: BLOOD UREA NITROGEN 124.3 mg/dL (7-18); CREATININE 8.7 mg/dL (0.55-1.3)
[2020-05-02] MEDS ORDERED: MIDAZOLAM 100 MG/100 ML MG IVPB ONE ×2 (09:46→22:51)
[2020-05-02] MEDS ORDERED: ASPIRIN 81 MG CHEWABLE TABLETS PO SCH (10:00)
[2020-05-02] MEDS ORDERED: ASPIRIN COATED 81 MG TABLET.EC PO SCH (10:00)
[2020-05-02 10:07] LABS: HEMOGLOBIN 10.2 GM/dL (11.7-16.9); MCH 30.6 pg (25.7-33.7); MCHC 31.8 g/dl (32.0-35.9); MEAN CELL VOLUME 96.3 fl (80-96); MEAN PLT VOLUME 11.2 fl (7.5-11.1); PLATELET COUNT 170 K/MM3 (134-434); RBC 3.33 M/mm3 (4.00-5.60); RDW 13.9 % (11.9-15.9); WHITE BLOOD COUNT 12.2 K/mm3 (4.0-10.0)
[2020-05-02] MEDS: FENTANYL NS IVPB 500 MCG/100 ML BAG IVPB SCH ×2 (11:00→17:58)
[2020-05-02] MEDS: MIDAZOLAM 100 MG in SODIUM CHLORIDE 100 ML IVPB SCH ×2 (11:00→11:30)
[2020-05-02] MEDS: SODIUM CHLORIDE 1,000 ML IV SCH ×2 (12:15→17:55)
[2020-05-02 16:09] VITALS: BMI 32.0
[2020-05-02] MEDS ORDERED: SODIUM CHLORIDE 500 ML IV STA (17:39)
[2020-05-02] MEDS ORDERED: SODIUM ZIRCONIUM CYCLOSILICATE (LOKELMA) 5 GM PACKET PO ONE (22:00)
[2020-05-03] MEDS: METOPROLOL TARTRATE 5 MG/5 ML VIAL IVPUSH SCH ×4 (02:35→22:29)
[2020-05-03] MEDS ORDERED: SODIUM BICARBONATE 8.4% 50 MEQ/50 ML VIAL ONE (05:03)
[2020-05-03] MEDS ORDERED: CEFEPIME HCL 1 GM VIAL (RESTRICTED TO ID) ONE ×2 (06:22→17:54)
[2020-05-03] MEDS ORDERED: DEXTROSE 5%-WATER 100 ML IVPB ONE ×2 (06:22→17:54)
[2020-05-03] MEDS: CEFEPIME 1 GM in DEXTROSE 5%-WATER 1 GM/100 ML BAG IVPB SCH ×2 (06:24→17:58)
[2020-05-03 07:09] LABS: HEMATOCRIT 32.9 % (35.4-49); HEMOGLOBIN 10.6 GM/dL (11.7-16.9); MCH 30.9 pg (25.7-33.7); MCHC 32.1 g/dl (32.0-35.9); MEAN CELL VOLUME 96.4 fl (80-96); PLATELET COUNT 202 K/MM3 (134-434); RBC 3.41 M/mm3 (4.00-5.60); RDW 14.2 % (11.9-15.9); WHITE BLOOD COUNT 13.8 K/mm3 (4.0-10.0)
[2020-05-03 07:35] LABS: POTASSIUM 5.9 mmol/L (3.5-5.1)
[2020-05-03 07:42] LABS: ALBUMIN 1.7 g/dl (3.4-5.0)
[2020-05-03 07:43] LABS: MAGNESIUM 2.3 mg/dL (1.8-2.4)
[2020-05-03 07:47] LABS: BILIRUBIN,TOTAL 0.9 mg/dL (0.2-1); TOT PROT 5.7 g/dl (6.4-8.2)
[2020-05-03] MEDS ORDERED: CALCIUM GLUCONATE 10% - 1,000 MG/10 ML VIAL IVPUSH ONE (08:35)
[2020-05-03] MEDS ORDERED: INSULIN REGULAR HUMAN 100 UNITS/ML *VIAL SQ ONE (08:35)
[2020-05-03] MEDS ORDERED: DEXTROSE 50%-WATER - 25 GM/50 ML VIAL IVPUSH ONE (08:35)
[2020-05-03] MEDS: AMINO ACIDS/PROTEIN HYDROLYS 30 ML LIQUID.PKT PO SCH ×4 (08:36→17:47)
[2020-05-03] MEDS ORDERED: PT OWN MED DRAWER 7, Y5N ONE (08:54)
[2020-05-03 09:07] LABS: BLOOD UREA NITROGEN 133.6 mg/dL (7-18); CALCIUM 6.6 mg/dL (8.5-10.1)
[2020-05-03 09:08] LABS: PHOSPHOROUS 10.2 mg/dL (2.5-4.9)
[2020-05-03] MEDS: FAMOTIDINE 20 MG/50 ML IVPB 20 MG/50 ML MG IVPB SCH ×2 (09:12→22:34)
[2020-05-03] MEDS: ZINC SULFATE 220 MG CAPSULE (FP) PO SCH ×3 (09:14→22:34)
[2020-05-03] MEDS: ASCORBIC ACID 500 MG TABLET (FP) PO SCH ×3 (09:14→22:34)
[2020-05-03] MEDS ORDERED: DEXTROSE 50%-WATER 25 GM/50 ML DISP.SYRIN IVPUSH ONE (09:15)
[2020-05-03] MEDS: CHOLECALCIFEROL (VIT D3) 1,000 UNIT (25 MCG) TABLET PO SCH ×2 (09:15→09:46)
[2020-05-03] MEDS ORDERED: DEXTROSE 50%-WATER 25 GM/50 ML DISP.SYRIN ONE (09:16)
[2020-05-03] MEDS: VECURONIUM BROMIDE 100 MG/100 ML BAG IVPB SCH ×2 (09:44→15:31)
[2020-05-03] MEDS: SODIUM ZIRCONIUM CYCLOSILICATE (LOKELMA) 5 GM PACKET PO SCH (09:46)
[2020-05-03] MEDS: FENTANYL NS IVPB 500 MCG/100 ML BAG IVPB SCH ×3 (10:15→23:11)
[2020-05-03] MEDS ORDERED: MIDAZOLAM 100 MG/100 ML MG IVPB ONE ×2 (11:11→19:35)
[2020-05-03] MEDS: MIDAZOLAM 100 MG in SODIUM CHLORIDE 100 ML IVPB SCH ×2 (11:29→23:12)
[2020-05-03] MEDS ORDERED: SODIUM CHLORIDE 250 ML IV PRN (12:06)
[2020-05-03] MEDS: NOREPINEPHRINE BITARTRATE 8,000 MCG in SODIUM CHLORIDE 492 ML IV SCH (15:00)
[2020-05-03] MEDS: SODIUM CHLORIDE 1,000 ML IV SCH ×2 (15:31→17:55)
[2020-05-04] MEDS: METOPROLOL TARTRATE 5 MG/5 ML VIAL IVPUSH SCH ×4 (02:15→21:18)
[2020-05-04] MEDS: VECURONIUM BROMIDE 100 MG/100 ML BAG IVPB SCH (02:16)
[2020-05-04] MEDS: CEFEPIME 1 GM in DEXTROSE 5%-WATER 1 GM/100 ML BAG IVPB SCH ×2 (05:44→20:42)
[2020-05-04] MEDS ORDERED: DEXTROSE 5%-WATER 100 ML IVPB ONE (05:44)
[2020-05-04] MEDS ORDERED: CEFEPIME HCL 1 GM VIAL (RESTRICTED TO ID) ONE (05:44)
[2020-05-04 07:07] LABS: HEMATOCRIT 27.4 % (35.4-49); MCH 31.2 pg (25.7-33.7); MCHC 32.8 g/dl (32.0-35.9); MEAN CELL VOLUME 95.2 fl (80-96); MEAN PLT VOLUME 10.3 fl (7.5-11.1); PLATELET COUNT 182 K/MM3 (134-434); RBC 2.87 M/mm3 (4.00-5.60); RDW 14.1 % (11.9-15.9)
[2020-05-04 07:24] LABS: POTASSIUM 5.1 mmol/L (3.5-5.1)
[2020-05-04 07:26] LABS: CALCIUM 7.2 mg/dL (8.5-10.1); MAGNESIUM 2.1 mg/dL (1.8-2.4)
[2020-05-04] MEDS ORDERED: MIDAZOLAM 100 MG/100 ML MG IVPB ONE (07:26)
[2020-05-04 07:27] LABS: ALBUMIN 1.4 g/dl (3.4-5.0)
[2020-05-04] MEDS: AMINO ACIDS/PROTEIN HYDROLYS 30 ML LIQUID.PKT PO SCH ×3 (07:27→20:42)
[2020-05-04 07:29] LABS: PHOSPHOROUS 8.2 mg/dL (2.5-4.9)
[2020-05-04 07:31] LABS: BILIRUBIN,TOTAL 0.8 mg/dL (0.2-1); TOT PROT 5.1 g/dl (6.4-8.2)
[2020-05-04 07:34] LABS: BLOOD UREA NITROGEN 100.6 mg/dL (7-18)
[2020-05-04 07:44] LABS: CREATININE 8.7 mg/dL (0.55-1.3)
[2020-05-04] MEDS: DEXAMETHASONE SOD PHOSPHATE 4 MG/1 ML VIAL IVPUSH SCH (09:00)
[2020-05-04] MEDS: ZINC SULFATE 220 MG CAPSULE (FP) PO SCH ×2 (09:01→21:17)
[2020-05-04] MEDS: ASCORBIC ACID 500 MG TABLET (FP) PO SCH ×2 (09:01→21:14)
[2020-05-04] MEDS: SODIUM ZIRCONIUM CYCLOSILICATE (LOKELMA) 5 GM PACKET PO SCH (09:01)
[2020-05-04] MEDS: CHOLECALCIFEROL (VIT D3) 1,000 UNIT (25 MCG) TABLET PO SCH (09:01)
[2020-05-04] MEDS: FAMOTIDINE 20 MG/50 ML IVPB 20 MG/50 ML MG IVPB SCH ×2 (09:02→21:16)
[2020-05-04] MEDS: FENTANYL NS IVPB 500 MCG/100 ML BAG IVPB SCH (10:29)
[2020-05-04] MEDS ORDERED: FUROSEMIDE 40 MG/4 ML INJECTABLE VIAL IVPUSH ONE ×2 (12:05→13:00)
[2020-05-04] MEDS: NOREPINEPHRINE BITARTRATE 8,000 MCG in SODIUM CHLORIDE 492 ML IV SCH (15:00)
[2020-05-04] MEDS ORDERED: SODIUM CHLORIDE 250 ML IV PRN (17:43)
[2020-05-04] MEDS: SODIUM CHLORIDE 1,000 ML IV SCH (17:49)
[2020-05-04] MEDS ORDERED: DEXAMETHASONE SOD PHOSPHATE 4 MG/1 ML VIAL IVPUSH ONE (22:00)
[2020-05-05] MEDS: FENTANYL NS IVPB 500 MCG/100 ML BAG IVPB SCH ×3 (01:25→16:34)
[2020-05-05] MEDS: METOPROLOL TARTRATE 5 MG/5 ML VIAL IVPUSH SCH ×4 (02:15→21:27)
[2020-05-05] MEDS: MIDAZOLAM 100 MG in SODIUM CHLORIDE 100 ML IVPB SCH ×2 (02:40→11:53)
[2020-05-05] MEDS: CEFEPIME 1 GM in DEXTROSE 5%-WATER 1 GM/100 ML BAG IVPB SCH ×2 (05:41→18:00)
[2020-05-05] MEDS: VECURONIUM BROMIDE 100 MG/100 ML BAG IVPB SCH (05:43)
[2020-05-05] MEDS: FAMOTIDINE 20 MG/50 ML IVPB 20 MG/50 ML MG IVPB SCH ×2 (09:28→21:08)
[2020-05-05] MEDS: DEXAMETHASONE SOD PHOSPHATE 4 MG/1 ML VIAL IVPUSH SCH (09:28)
[2020-05-05 09:30] LABS: ARTERIAL BLD GAS O2 SATURATION 90.8 mmHg (95-98); ARTERIAL BLOOD GAS BASE EXCESS -12.2 mmol/L (-2-2); ARTERIAL BLOOD GAS PO2 79.2 mmHg (80-100)
[2020-05-05] MEDS: AMINO ACIDS/PROTEIN HYDROLYS 30 ML LIQUID.PKT PO SCH ×3 (09:30→18:45)
[2020-05-05 09:31] LABS: ALLENS TEST POSITIVE
[2020-05-05 09:32] LABS: VENT MODE A/C
[2020-05-05 09:33] LABS: VENT RATE 30
[2020-05-05 09:39] LABS: ARTERIAL BLOOD GAS pH 7.107 (7.350-7.450)
[2020-05-05 10:06] LABS: HEMATOCRIT 26.4 % (35.4-49); HEMOGLOBIN 8.4 GM/dL (11.7-16.9); MCH 30.7 pg (25.7-33.7); MCHC 31.8 g/dl (32.0-35.9); MEAN CELL VOLUME 96.5 fl (80-96); MEAN PLT VOLUME 10.5 fl (7.5-11.1); PLATELET COUNT 194 K/MM3 (134-434); RBC 2.73 M/mm3 (4.00-5.60); RDW 14.2 % (11.9-15.9); WHITE BLOOD COUNT 19.5 K/mm3 (4.0-10.0)
[2020-05-05 10:22] LABS: POTASSIUM 5.7 mmol/L (3.5-5.1)
[2020-05-05 10:24] LABS: CALCIUM 7.6 mg/dL (8.5-10.1)
[2020-05-05 10:25] LABS: ALBUMIN 1.5 g/dl (3.4-5.0); MAGNESIUM 2.4 mg/dL (1.8-2.4)
[2020-05-05 10:29] LABS: BILIRUBIN,TOTAL 0.6 mg/dL (0.2-1); TOT PROT 5.6 g/dl (6.4-8.2)
[2020-05-05 11:09] LABS: BLOOD UREA NITROGEN 126.8 mg/dL (7-18); CREATININE 9.7 mg/dL (0.55-1.3)
[2020-05-05 11:28] LABS: PHOSPHOROUS 8.4 mg/dL (2.5-4.9)
[2020-05-05] MEDS ORDERED: MIDAZOLAM 100 MG/100 ML MG IVPB ONE (11:48)
[2020-05-05] MEDS: SODIUM ZIRCONIUM CYCLOSILICATE (LOKELMA) 5 GM PACKET PO SCH (11:52)
[2020-05-05] MEDS: ASCORBIC ACID 500 MG TABLET (FP) PO SCH ×2 (11:53→21:08)
[2020-05-05] MEDS: CHOLECALCIFEROL (VIT D3) 1,000 UNIT (25 MCG) TABLET PO SCH (11:53)
[2020-05-05] MEDS: ZINC SULFATE 220 MG CAPSULE (FP) PO SCH ×2 (11:53→21:08)
[2020-05-05] MEDS: ALBUMIN HUMAN 25% 12.5 GM/50 ML VIAL IVPB SCH ×4 (13:10→14:40)
[2020-05-05] MEDS: SODIUM CHLORIDE 1,000 ML IV SCH ×2 (16:33→18:46)
[2020-05-05] MEDS: NOREPINEPHRINE BITARTRATE 8,000 MCG in SODIUM CHLORIDE 492 ML IV SCH (16:56)
[2020-05-05 20:12] LABS: HEP B CORE AB, TOT Positive (Negative)
[2020-05-06] MEDS ORDERED: MIDAZOLAM 100 MG/100 ML MG IVPB ONE ×2 (00:10→12:49)
[2020-05-06] MEDS: VECURONIUM BROMIDE 100 MG/100 ML BAG IVPB SCH (00:19)
[2020-05-06] MEDS: MIDAZOLAM 100 MG in SODIUM CHLORIDE 100 ML IVPB SCH ×2 (00:20→12:30)
[2020-05-06] MEDS: FENTANYL NS IVPB 500 MCG/100 ML BAG IVPB SCH ×4 (00:21→22:29)
[2020-05-06] MEDS: METOPROLOL TARTRATE 5 MG/5 ML VIAL IVPUSH SCH ×4 (01:40→20:35)
[2020-05-06] MEDS: CEFEPIME 1 GM in DEXTROSE 5%-WATER 1 GM/100 ML BAG IVPB SCH ×2 (06:36→20:50)
[2020-05-06 07:49] LABS: BASO % 0.1 % (0-2.0); HEMATOCRIT 25.6 % (35.4-49); HEMOGLOBIN 8.1 GM/dL (11.7-16.9); LYMPH % 2.3 % (8-40); MCH 30.9 pg (25.7-33.7); MCHC 31.7 g/dl (32.0-35.9); MEAN CELL VOLUME 97.6 fl (80-96); MEAN PLT VOLUME 10.7 fl (7.5-11.1); MONO % 6.7 % (3.8-10.2); NEUT % 90.9 % (42.8-82.8); PLATELET COUNT 225 K/MM3 (134-434); RBC 2.62 M/mm3 (4.00-5.60); RDW 14.2 % (11.9-15.9); WHITE BLOOD COUNT 22.8 K/mm3 (4.0-10.0)
[2020-05-06 07:57] LABS: POTASSIUM 5.6 mmol/L (3.5-5.1)
[2020-05-06 08:32] LABS: ALBUMIN 1.6 g/dl (3.4-5.0); BILIRUBIN,TOTAL 0.5 mg/dL (0.2-1); TOT PROT 5.6 g/dl (6.4-8.2)
[2020-05-06 08:34] LABS: CALCIUM 7.5 mg/dL (8.5-10.1); MAGNESIUM 2.2 mg/dL (1.8-2.4)
[2020-05-06 08:53] LABS: BLOOD UREA NITROGEN 111.5 mg/dL (7-18); CREATININE 8.4 mg/dL (0.55-1.3)
[2020-05-06] MEDS: DEXAMETHASONE SOD PHOSPHATE 4 MG/1 ML VIAL IVPUSH SCH (09:25)
[2020-05-06] MEDS: AMINO ACIDS/PROTEIN HYDROLYS 30 ML LIQUID.PKT PO SCH ×3 (09:25→18:55)
[2020-05-06] MEDS: ASCORBIC ACID 500 MG TABLET (FP) PO SCH ×2 (09:26→23:16)
[2020-05-06] MEDS: ZINC SULFATE 220 MG CAPSULE (FP) PO SCH ×2 (09:26→23:16)
[2020-05-06] MEDS: FAMOTIDINE 20 MG/50 ML IVPB 20 MG/50 ML MG IVPB SCH ×2 (09:26→23:16)
[2020-05-06] MEDS: CHOLECALCIFEROL (VIT D3) 1,000 UNIT (25 MCG) TABLET PO SCH (09:26)
[2020-05-06] MEDS: SODIUM ZIRCONIUM CYCLOSILICATE (LOKELMA) 5 GM PACKET PO SCH (09:26)
[2020-05-06 10:52] LABS: PHOSPHOROUS > 9.0 mg/dL (2.5-4.9)
[2020-05-06] MEDS ORDERED: SODIUM CHLORIDE 250 ML IV PRN (12:35)
[2020-05-06 15:21] LABS: ANISOCYTOSIS 1+; MACROCYTOSIS 1+; PLATELET ESTIMATE NORMAL
[2020-05-06] MEDS: ALBUMIN HUMAN 25% 12.5 GM/50 ML VIAL IVPB SCH ×3 (16:23→16:25)
[2020-05-06] MEDS: NOREPINEPHRINE BITARTRATE 8,000 MCG in SODIUM CHLORIDE 492 ML IV SCH (18:54)
[2020-05-06] MEDS: SODIUM CHLORIDE 1,000 ML IV SCH (18:55)
[2020-05-07] MEDS ORDERED: MIDAZOLAM 100 MG/100 ML MG IVPB ONE ×2 (01:44→11:47)
[2020-05-07] MEDS: MIDAZOLAM 100 MG in SODIUM CHLORIDE 100 ML IVPB SCH ×2 (01:47→11:48)
[2020-05-07] MEDS: VECURONIUM BROMIDE 100 MG/100 ML BAG IVPB SCH (01:48)
[2020-05-07] MEDS: METOPROLOL TARTRATE 5 MG/5 ML VIAL IVPUSH SCH ×3 (01:48→13:34)
[2020-05-07] MEDS: CEFEPIME 1 GM in DEXTROSE 5%-WATER 1 GM/100 ML BAG IVPB SCH (06:59)
[2020-05-07 08:52] LABS: BASO % 0.2 % (0-2.0); EOS % 0.1 % (0-4.5); HEMATOCRIT 23.6 % (35.4-49); HEMOGLOBIN 7.5 GM/dL (11.7-16.9); MCH 31.1 pg (25.7-33.7); MCHC 31.9 g/dl (32.0-35.9); MEAN CELL VOLUME 97.5 fl (80-96); MEAN PLT VOLUME 10.3 fl (7.5-11.1); MONO % 8.2 % (3.8-10.2); NEUT % 87.5 % (42.8-82.8); PLATELET COUNT 211 K/MM3 (134-434); RBC 2.42 M/mm3 (4.00-5.60); RDW 14.8 % (11.9-15.9); WHITE BLOOD COUNT 28.3 K/mm3 (4.0-10.0)
[2020-05-07 09:13] LABS: POTASSIUM 5.9 mmol/L (3.5-5.1)
[2020-05-07 09:18] LABS: CALCIUM 7.5 mg/dL (8.5-10.1); MAGNESIUM 2.2 mg/dL (1.8-2.4)
[2020-05-07 09:19] LABS: ALBUMIN 1.6 g/dl (3.4-5.0)
[2020-05-07 09:23] LABS: BILIRUBIN,TOTAL 0.6 mg/dL (0.2-1); TOT PROT 5.5 g/dl (6.4-8.2)
[2020-05-07] MEDS ORDERED: MINERAL OIL ENEMA 133 ML ENEMA RC ONE (09:35)
[2020-05-07] MEDS: AMINO ACIDS/PROTEIN HYDROLYS 30 ML LIQUID.PKT PO SCH ×2 (09:41→11:23)
[2020-05-07] MEDS: DEXAMETHASONE SOD PHOSPHATE 4 MG/1 ML VIAL IVPUSH SCH (09:42)
[2020-05-07] MEDS: ZINC SULFATE 220 MG CAPSULE (FP) PO SCH (09:42)
[2020-05-07] MEDS: SODIUM ZIRCONIUM CYCLOSILICATE (LOKELMA) 5 GM PACKET PO SCH (09:42)
[2020-05-07] MEDS: FAMOTIDINE 20 MG/50 ML IVPB 20 MG/50 ML MG IVPB SCH (09:42)
[2020-05-07] MEDS: CHOLECALCIFEROL (VIT D3) 1,000 UNIT (25 MCG) TABLET PO SCH (09:43)
[2020-05-07] MEDS: ASCORBIC ACID 500 MG TABLET (FP) PO SCH (09:43)
[2020-05-07 09:53] LABS: PHOSPHOROUS 8.7 mg/dL (2.5-4.9)
[2020-05-07] MEDS ORDERED: POLYETHYLENE GLYCOL 3350 119 GM BTL PO SCH (10:00)
[2020-05-07 10:02] LABS: CREATININE 8.9 mg/dL (0.55-1.3)
[2020-05-07] MEDS ORDERED: DEXTROSE 50%-WATER - 25 GM/50 ML VIAL IVPUSH ONE (10:22)
[2020-05-07] MEDS ORDERED: INSULIN REGULAR HUMAN 100 UNITS/ML *VIAL IVPUSH ONE (10:22)
[2020-05-07] MEDS ORDERED: SODIUM BICARBONATE 8.4% 50 MEQ/50 ML DISP.SYRIN IVPUSH ONE (10:22)
[2020-05-07] MEDS ORDERED: FUROSEMIDE 40 MG/4 ML INJECTABLE VIAL IVPUSH ONE (10:22)
[2020-05-07 10:24] LABS: ANISOCYTOSIS 0; MACROCYTOSIS 0; PLATELET ESTIMATE NORMAL
[2020-05-07] MEDS ORDERED: SODIUM BICARBONATE 8.4% 50 MEQ/50 ML VIAL ONE (10:58)
[2020-05-07] MEDS ORDERED: CALCIUM GLUCONATE 10% - 1,000 MG/10 ML VIAL IVPB ONE (11:30)
[2020-05-07 12:11] VITALS: TEMP 98
[2020-05-07] MEDS: NOREPINEPHRINE BITARTRATE 8,000 MCG in SODIUM CHLORIDE 492 ML IV SCH (13:30)
[2020-05-07] MEDS ORDERED: FUROSEMIDE 100 MG/10 ML INJECTABLE VIAL IVPB ONE ×2 (13:45)
[2020-05-07] MEDS ORDERED: SODIUM CHLORIDE 250 ML IV PRN (13:46)
[2020-05-07] MEDS ORDERED: FUROSEMIDE 40 MG/4 ML INJECTABLE VIAL IVPB ONE (14:00)
[2020-05-07] MEDS: FENTANYL NS IVPB 500 MCG/100 ML BAG IVPB SCH (16:04)
[2020-05-07 16:12] VITALS: BP 114/69; PULSE 108
[2020-05-07] MEDS ORDERED: SODIUM ZIRCONIUM CYCLOSILICATE (LOKELMA) 5 GM PACKET PO SCH (22:00)
[2020-05-08] MEDS ORDERED: ALBUMIN HUMAN 25% 12.5 GM/50 ML VIAL IVPB SCH (14:00)
== END 2020-05-07 18:07 | disposition expired | DRG 870 ==
LOC: SUPCPDRO 12:28 → JER 12:28 → JERBED 16:26 → J4W 04-26 22:36 → JICU 04-28 07:41 → JICU-6 05-04 12:50
PROVIDERS: ADMIT Internal Medicine; ATTEND Internal Medicine Pulmonary Disease
PROC: XW13325 Transfusion of Convalescent Plasma (Nonautologous) into Peripheral Vein, Percutaneous Approach, New Technology Group 5 (ICD-10-PCS; 2020-04-26)
PROC: XW033E5 Introduction of Remdesivir Anti-infective into Peripheral Vein, Percutaneous Approach, New Technology Group 5 (ICD-10-PCS; 2020-04-27)
PROC: 5A1955Z Respiratory Ventilation, Greater than 96 Consecutive Hours (ICD-10-PCS; principal; 2020-04-28)
PROC: 0BH17EZ Insertion of Endotracheal Airway into Trachea, Via Natural or Artificial Opening (ICD-10-PCS; 2020-04-28)
PROC: 0DH67UZ Insertion of Feeding Device into Stomach, Via Natural or Artificial Opening (ICD-10-PCS; 2020-04-28)
PROC: 3E0G76Z Introduction of Nutritional Substance into Upper GI, Via Natural or Artificial Opening (ICD-10-PCS; 2020-04-28)
PROC: 05HM33Z Insertion of Infusion Device into Right Internal Jugular Vein, Percutaneous Approach (ICD-10-PCS; 2020-04-28)
PROC: B543ZZA Ultrasonography of Right Jugular Veins, Guidance (ICD-10-PCS; 2020-04-28)
PROC: 05HN33Z Insertion of Infusion Device into Left Internal Jugular Vein, Percutaneous Approach (ICD-10-PCS; 2020-05-03)
PROC: B544ZZA Ultrasonography of Left Jugular Veins, Guidance (ICD-10-PCS; 2020-05-03)
DX: A41.89 Other specified sepsis (principal); J96.01 Acute respiratory failure with hypoxia; J12.82 Pneumonia due to coronavirus disease 2019; I21.4 Non-ST elevation (NSTEMI) myocardial infarction; R65.21 Severe sepsis with septic shock; I50.31 Acute diastolic (congestive) heart failure; U07.1 COVID-19; N17.9 Acute kidney failure, unspecified; I24.8 Other forms of acute ischemic heart disease; I45.10 Unspecified right bundle-branch block; I44.4 Left anterior fascicular block; E78.5 Hyperlipidemia, unspecified; H26.9 Unspecified cataract; R73.03 Prediabetes; E86.0 Dehydration; E66.9 Obesity, unspecified; Z68.32 Body mass index [BMI] 32.0-32.9, adult; E83.39 Other disorders of phosphorus metabolism; E87.5 Hyperkalemia; I11.0 Hypertensive heart disease with heart failure; I27.20 Pulmonary hypertension, unspecified; D64.9 Anemia, unspecified
CPT/HCPCS: 31500; 36415; 36430; 36600; 70450-TC; 71045-TC-FY; 71250-TC; 80048; 80053; 80061; 81003; 82248; 82436; 82550; 82553; 82565; 82728; 82803; 82962; 83036; 83605; 83615; 83721; 83735; 83874; 83880; 83935; 84100; 84133; 84300; 84443; 84484; 85025; 85027; 85379; 85610; 85651; 85730; 86140; 86704; 86706; 86707; 86708; 86709; 86803; 86850; 86900; 86901; 87040; 87070; 87086; 87107; 87186; 87205; 87340; 87426; 87804; 93005; 93010; 93306-TC; 94002; 94660; 99285-25; C9399; J0131; J1644; P9017